=== PATIENT | male | born 1965 | race Caucasian/White ===

== ENCOUNTER 2018-10-29 11:42 | Inpatient (IN) ==
[2018-10-29] MEDS ORDERED: Ketorolac 30 MG/ML VIAL IVP ONE (12:12)
[2018-10-29] MEDS ORDERED: 0.9 % Sodium Chloride 1,000 ML IVC ONE (12:12)
[2018-10-29] MEDS ORDERED: *HR* FentaNYL (PF) 100 MCG/2 ML VIAL IVP ONE (12:12)
[2018-10-29 12:24] LABS: Bilirubin,Urine Negative (Negative); Blood,Urine Negative (Negative); Clarity,Urine Clear (Clear); Color,Urine Yellow (Yellow); Glucose,Urine (UA) Normal (Normal); Ketones,Urine Negative (Negative); Leukocyte Esterase,Urine Negative (Negative); Nitrite,Urine Negative (Negative); PH,Urine 6.5 pH Units (5.0-8.0); Protein,Urine Negative (Neg-Trace); Specific Gravity,Urine 1.014 (1.010-1.025); Urobilinogen,Urine Normal (Normal)
[2018-10-29 12:37] LABS: Basophils # 0.1 K/mcL (0.0-0.2); Basophils % 0.4 %; Eosinophils # 0.2 K/mcL (0.0-0.6); Eosinophils % 1.2 %; Hematocrit 44.6 % (37.5-50.1); Hemoglobin 15.4 g/dL (12.9-16.9); Immature Granulocytes % 0.5 % (0-4); Lymphocytes # 1.7 K/mcL (0.6-4.6); Lymphocytes % 11.7 %; Mean Corpuscular HGB Conc 34.5 g/dL (31.6-35.5); Mean Corpuscular Hemoglobin 34.6 pg (28.0-33.3); Mean Corpuscular Volume 100.2 fL (83.0-100.0); Monocytes % 6.9 %; Neutrophils # 11.5 K/mcL (1.6-8.9); Platelet Count 130 K/mcL (140-400); Red Blood Count 4.45 M/mcL (4.19-5.50); Red Cell Distribution Width 12.9 % (11.5-14.5); Segmented Neutrophils % 79.3 %; White Blood Count 14.5 K/mcL (4.3-11.1)
--- NOTE | 2018-10-29 12:53 | Emergency Department Note ---
Disposition Clinical Impression: Common bile duct dilatation Pancreatitis Qualifiers: Chronicity: acute Pancreatitis type: unspecified pancreatitis type Acute pancreatitis complication: unspecified Qualified Code(s): K85.90 - Acute pancreatitis without necrosis or infection, unspecified Disposition: Admitted As Inpatient Condition: Good Referrals: Eugenio Ruiz MD [Primary Care Provider] - Forms: ED Satisfaction Letter, Work/School Release Time of Disposition: 14:27 General Adult HPI - General Chief complaint: ED Abdominal Pain Stated complaint: Kidney Stone Time Seen by Provider: 10/29/18 12:10 Source: patient Mode of arrival: ambulatory Limitations: no limitations Nursing Notes Reviewed: Yes Vital Signs Reviewed: Yes - History of Present Illness HPI Narrative: 53 year old male present to the ED with complaintsof left flank pain and passing kidney stone just this morning .STate that he felt the pain last night and it kept him up. Atinet states that his last kidny stone was over 20 yaers ago and it required a basket retrieval for removal but has not had one since. He state that the sensation is sharp and wraps around in his groin and it feels like ther are many omore that are trying to drop. PAtinet denies fevers, heamturia, or nausea or vomitting. Patinet states that it feels as though there is knidfe scraping down his back to his groin. Pain Scale: 9 - Related Data Home Medications Medication Instructions Recorded Confirmed Albuterol Sulfate [Proair Hfa] 2 puff IH Q4H PRN 05/04/15 11/12/17 Allopurinol [Zyloprim 100 MG] 100 mg PO BID 05/04/15 11/12/17 Carbidopa/Levodopa 25/100 [Sinemet 1 tab PO QID 05/04/15 11/12/17 25/100] Escitalopram [Lexapro] 20 mg PO DAILY 05/04/15 10/29/18 Melatonin 10 mg PO HS 05/04/15 10/29/18 Metoprolol XL (24 HR) Succ [Toprol 50 mg PO DAILY 05/04/15 10/29/18 Xl] Hydrocortisone [Proctozone-Hc] 1 appl RC BID 11/05/15 11/12/17 Diphenoxylate/Atropine [Lomotil 1 each PO QID PRN 08/28/16 11/12/17 2.5 mg/0.025 mg] Mirtazapine [Remeron] 15 mg PO HS 11/12/17 10/29/18 Pantoprazole Sodium [Protonix] 40 mg PO DAILY 11/12/17 10/29/18 Previous Rx's Medication Instructions Recorded Fenofibrate [Tricor] 54 mg PO DAILY #30 tablet 05/07/15 Albuterol Neb [Proventil Neb] 2.5 mg IH ONCE PRN inhsol 11/12/17 Allergies Allergy/AdvReac Type Severity Reaction Status Date / Time acetaminophen [From Tylenol] Allergy Nausea Verified 11/12/17 09:50 haloperidol [From Haldol] AdvReac See Verified 10/30/17 09:57 Comments Constitutional: Denies: fever, chills, weakness, weight change Eyes: Denies: eye pain, eye discharge, vision change ENT ED: Denies: ear pain, throat pain, dental pain, hearing loss, epistaxis, congestion, dysphagia Cardiovascular: Denies: chest pain, palpitations, dyspnea on exertion, edema, syncope Respiratory: Denies: cough, dyspnea, wheezes, hemoptysis, stridor Gastrointestinal: Reports: abdominal pain. Denies: nausea, vomiting, diarrhea, constipation, hematemesis, melena, hematochezia Genitourinary: Reports: dysuria, frequency. Denies: urgency, hematuria Musculoskeletal: Denies: back pain, neck pain, arthralgia, myalgia Integumentary: Denies: rash, abrasion, lesions Neurological: Denies: headache, weakness, numbness, paresthesias, confusion, abnormal gait, vertigo Psychiatric: Denies: anxiety, depression, suicidal thoughts, homicidal thoughts, auditory hallucinations, visual hallucinations Endocrine: Denies: fatigue Hematological/Lymphatic: Denies: easy bleeding, easy bruising Allergic/Immunologic: Denies: facial swelling, urticaria Past Medical History - Past Medical History Medical history: Reports: GERD, hyperlipidemia, kidney stones, other Surgical history: Reports: cholecystectomy Psychiatric history: Reports: anxiety, depression, PTSD - Social History Smoking Status: Current every day smoker Smokeless Tobacco Status: No Alcohol use: Reports: none Drug use: Reports: none Physical Exam - General Limitations: no limitations General appearance: alert, in no apparent distress - Head Head exam: atraumatic, normocephalic, normal inspection - Eye Eye exam: Present: normal appearance, PERRL, EOMI - Expanded Eye Exam Pupils: Bilateral: reactive - ENT ENT exam: normal exam, normal oropharynx, mucous membranes moist - Expanded ENT Exam External ear exam: Present: normal external inspection Mouth exam: Present: normal external inspection Teeth exam: Present: normal inspection Throat exam: Present: normal inspection - Neck Neck exam: Present: normal inspection, full ROM, trachea midline - Chest Chest inspection: Present: normal inspection, symmetric chest wall rise - Respiratory Respiratory exam: Present: normal lung sounds bilaterally - Cardiovascular Cardiovascular exam: Present: regular rate, normal rhythm, normal heart sounds - Abdominal Exam Abdominal exam: Present: soft, Non-Tender. Absent: tenderness, distention, guarding, rebound, rigidity - Extremities Exam Extremities exam: Present: normal inspection, full ROM. Absent: tenderness, pedal edema - Expanded Upper Extremity Exam Shoulder exam: Present: normal inspection, full ROM Arm exam: Present: normal inspection, full ROM Elbow exam: Present: normal inspection, full ROM Forearm/Wrist exam: Present: normal inspection, full ROM Hand exam: Present: normal inspection, full ROM Vascular exam: Normal: capillary refill, radial pulse - Expanded Lower Extremity Exam Hip/Pelvis exam: Present: normal inspection, full ROM Upper leg exam: Present: normal inspection, full ROM Knee exam: Present: normal inspection, full ROM Lower leg exam: Present: normal inspection, full ROM Ankle exam: Present: normal inspection, full ROM Foot/toe exam: Present: normal inspection, full ROM Neurovascular/Tendon exam: Absent: motor deficit, sensory deficit, tendon deficit - Back Exam Back exam: Present: normal inspection, full ROM, tenderness (left sided, mid back) - Neurological Exam Neurological exam: Present: alert, oriented X3 - Expanded Neurological Exam Patient oriented to: Present: person, place, time Coma Scale Eye Opening: Spontaneous Coma Scale Motor Response: Obeys Commands Coma Scale Verbal Response: Oriented Coma Scale Total: 15 - Psychiatric Psychiatric exam: Present: normal affect, normal mood - Skin Skin exam: Present: warm, dry, intact, normal color Course Course Narrative: i will do a kidney stone protocol with CT abp and IVF/meds for relief with labs. UA is negative - Reevaluation(s) Reevaluation #1: updated patiet on results. Patinet agrees to admission. NPO now. Time: 14:26 - Consultations Consultation #1: discussed case with Ledy diaz from GI and they will see in consult. Recomemndating a MRCP Time: 14:18 Consultation #2: discussed case with Dr. Matthew and he accepts aptinet to medicine service. Time: 14:26 Vital Signs Temperature 97.9 F 10/29/18 11:43 Pulse Rate 84 10/29/18 11:43 Respiratory Rate 16 10/29/18 11:43 Blood Pressure 120/85 10/29/18 11:43 O2 Sat by Pulse Oximetry 97 10/29/18 11:43 Temperature 97.9 F 10/29/18 11:43 Pulse Rate 84 10/29/18 11:43 Respiratory Rate 16 10/29/18 11:43 Blood Pressure 120/85 10/29/18 11:43 O2 Sat by Pulse Oximetry 97 10/29/18 11:43 Oxygen Delivery Oxygen Delivery Room Air Medical Decision Making - Lab Data Result diagrams: 10/29/18 12:23 10/29/18 12:23 Lab Results 10/29/18 10/29/18 10/29/18 Range/Units 11:59 12:23 12:23 WBC 14.5 H (4.3-11.1) K/mcL RBC 4.45 (4.19-5.50) M/mcL Hgb 15.4 (12.9-16.9) g/dL Hct 44.6 (37.5-50.1) % MCV 100.2 H (83.0-100.0) fL MCH 34.6 H (28.0-33.3) pg MCHC 34.5 (31.6-35.5) g/dL RDW 12.9 (11.5-14.5) % Plt Count 130 L (140-400) K/mcL MPV 10.0 (9.4-12.4) fL Immature Gran % 0.5 (0-4) % Seg Neutrophils % 79.3 % Lymphocytes % 11.7 % Monocytes % 6.9 % Eosinophils % 1.2 % Basophils % 0.4 % Neutrophils # 11.5 H (1.6-8.9) K/mcL Lymphocytes # 1.7 (0.6-4.6) K/mcL Monocytes # 1.0 (0.0-1.3) K/mcL Eosinophils # 0.2 (0.0-0.6) K/mcL Basophils # 0.1 (0.0-0.2) K/mcL Sodium 136 (136-145) mEq/L Potassium 3.8 (3.5-5.1) mEq/L Chloride 103 (98-107) mEq/L Carbon Dioxide 25 (23-29) mEq/L BUN 11 (6-20) mg/dL Creatinine 0.77 (0.70-1.30) mg/dL Est GFR ( Amer) > 60 (> 60) Est GFR (Non-Af Amer) > 60 (> 60) BUN/Creatinine Ratio 14 (6-26) Glucose 136 H (70-105) mg/dL Calculated Osmolality 283 (280-300) Calcium 7.9 L (8.6-10.3) mg/dL Total Bilirubin 0.6 (0.3-1.0) mg/dL Direct Bilirubin 0.1 (0.0-0.2) mg/dL Indirect Bilirubin 0.5 (0.0-1.2) mg/dL AST 149 H (13-39) Units/L ALT 145 H (7-52) Units/L Alkaline Phosphatase 113 H (34-104) Units/L Serum Total Protein 6.2 L (6.4-8.9) g/dL Albumin 3.8 (3.5-5.7) g/dL Globulin 2.4 (2.4-3.5) g/dL Albumin/Globulin Ratio 1.6 (1.1-2.2) Lipase 249 H (11-82) Units/L Urine Color Yellow (Yellow) Urine Clarity Clear (Clear) Urine pH 6.5 (5.0-8.0) pH Units Ur Specific [place] 1.014 (1.010-1.025) Urine Protein Negative (Neg-Trace) mg/dL Urine Glucose (UA) Normal (Normal) mg/dL Urine Ketones Negative (Negative) mg/dL Urine Blood Negative (Negative) Urine Nitrite Negative (Negative) Urine Bilirubin Negative (Negative) Urine Urobilinogen Normal (Normal) mg/dL Ur Leukocyte Esterase Negative (Negative) Ur Culture Indicated? NO (NO)
[2018-10-29 12:59] LABS: Alanine Aminotransferase 145 Units/L (7-52); Albumin 3.8 g/dL (3.5-5.7); Albumin/Globulin Ratio 1.6 (1.1-2.2); Alkaline Phosphatase 113 Units/L (34-104); Aspartate Amino Transferase 149 Units/L (13-39); BUN/Creatinine Ratio 14 (6-26); Bilirubin,Direct 0.1 mg/dL (0.0-0.2); Bilirubin,Indirect 0.5 mg/dL (0.0-1.2); Bilirubin,Total 0.6 mg/dL (0.3-1.0); Blood Urea Nitrogen 11 mg/dL (6-20); Calcium 7.9 mg/dL (8.6-10.3); Carbon Dioxide 25 mEq/L (23-29); Chloride 103 mEq/L (98-107); Globulin 2.4 g/dL (2.4-3.5); Glucose 136 mg/dL (70-105); Lipase 249 Units/L (11-82); Osmolality,Calculated 283 (280-300); Potassium 3.8 mEq/L (3.5-5.1); Sodium 136 mEq/L (136-145); Total Protein 6.2 g/dL (6.4-8.9); eGFR For African Americans > 60 (> 60); eGFR For Non-African Americans > 60 (> 60)
[2018-10-29] MEDS ORDERED: Morphine Sulfate 2 MG/ML SYRINGE IVP ONE (14:03)
[2018-10-29] MEDS ORDERED: Ondansetron 4 MG/2 ML VIAL IVP ONE (14:03)
[2018-10-29] MEDS ORDERED: Ondansetron 4 MG/2 ML VIAL IVP PRN (15:17)
[2018-10-29] MEDS ORDERED: *HR* HYDROcodone/Acet 5/325 mg TABLET PO PRN (15:22)
[2018-10-29] MEDS ORDERED: Acetaminophen 325 MG TABLET PO PRN (15:22)
--- NOTE | 2018-10-29 15:28 | Internal Med History&Physical ---
Date of Encounter: 10/29/18 Time of Encounter: 15:00 Internal Medicine - H&P: HPI Chief complaint: abdominal pain Admitted From: Home Plans for Post Hospital Care: Home History of present illness: Mr. Stern is a 53 year old male with history of etoh abuse, acute pancreatitis, Parkinson disease, nephrolithiasis who came into the hospital due to back pain. His pain started yesterday and gradually got worse, intermittent, 6/10, nonradiating. He denied nausea/vomiting/jaundice or itching. He passed a kidney stone today and he denied any dysuria, hematuria, or polyuria. He has no fever, chills or night sweats. He drinks vodka 34 times week with no previous history of withdrawal, seizures or hallucinations. He thinks that his pain is different than his pancreatitis pain in the past. In the ED, patient was afebrile, hemodynamically stable. Blood work was significant for leukocytosis 14.5, elevated AST/AST/ALK and lipase level. UA was essentially negative. CT scan of the abdomen revealed fatty liver disease, acute interstitial edematous pancreatitis, mildly dilated common bile duct near compared to last CT scan which could represent choledocholithiasis. Patient received pain management and IV fluid in the ED. Past Med Surg Social Fam HX - Past Medical History Medical history: GERD, hyperlipidemia, kidney stones, other Additional medical history: parkinsons, insomnia, external hemorrhoids, tachycardia, stomach ulcer, pancreatitis, agressiveniess and agitation with anesthesia Psychiatric history: anxiety, depression, PTSD - Past Surgical History Surgical History: cholecystectomy Additional surgical history: multiple back and orthodic surgeries - Social History Smoking Status: Current every day smoker Smokeless Tobacco Status: No Alcohol use: none Drug use: none Current living situation: Home - Independent Activity Level: Independent ambulation Recent Out of Country Travel Within the Last 8 Weeks: No Exposure or Possible Exposure to Illness During Travel: No - Additional Family History Additional family history: Patient does not recall any family history Internal Medicine - H&P: Meds Albuterol Sulfate [Proair Hfa] 2 puff IH Q4H PRN 05/04/15 [History] Escitalopram [Lexapro] 20 mg PO DAILY 05/04/15 [History] Melatonin 10 mg PO HS 05/04/15 [History] Metoprolol XL (24 HR) Succ [Toprol Xl] 50 mg PO DAILY 05/04/15 [History] Fenofibrate [Tricor] 54 mg PO DAILY #30 tablet 05/07/15 [Rx] Mirtazapine [Remeron] 15 mg PO HS 11/12/17 [History] Pantoprazole Sodium [Protonix] 40 mg PO DAILY PRN 11/12/17 [History] Rotigotine [Neupro] 1 each TD DAILY 10/29/18 [History] Tramadol HCl [Ultram] 50 mg PO Q8H PRN 10/29/18 [History] Allergy/AdvReac Type Severity Reaction Status Date / Time acetaminophen [From Tylenol] Allergy Nausea Verified 11/12/17 09:50 haloperidol [From Haldol] AdvReac See Verified 10/30/17 09:57 Comments All Systems PM: A 10-system review of systems was performed and is negative for pertinent findings except as documented above in the HPI. - Constitutional Vitals: Temp Pulse Resp BP Pulse Ox 97.9 F 84 16 120/85 97 10/29/18 11:43 10/29/18 11:43 10/29/18 11:43 10/29/18 11:43 10/29/18 11:43 Exam: General: Patient is alert, oriented 3. Head: Atraumatic, normal inspection, normocephalic. Eye: EOMI, PERRLA, no scleral icterus noted. ENT: Mucous membranes moist. Neck: Normal inspection, Respiratory: No respiratory distress, rhonchi, or wheezes noted. Cardiovascular: Regular rate and regular rhythm, S1 and S2 audible. No murmurs, rubs, or gallops. GI: Soft, nondistended, normal bowel sounds. Extremities:No joint swelling, pedal edema, or tenderness noted. Neurological: Alert, oriented 3, no focal deficits. Psychiatric: normal affect, normal mood. Skin: Dry, intact, warm. Normal color. No rashes. Internal Med - H&P Results - Labs CBC & Chem 7: 10/29/18 12:23 10/29/18 12:23 Labs: Short CBC 10/29/18 Range/Units 12:23 WBC 14.5 H (4.3-11.1) K/mcL Hgb 15.4 (12.9-16.9) g/dL Hct 44.6 (37.5-50.1) % Plt Count 130 L (140-400) K/mcL Neutrophils # 11.5 H (1.6-8.9) K/mcL BMP 10/29/18 12:23 Sodium 136 Potassium 3.8 Chloride 103 Carbon Dioxide 25 BUN 11 Creatinine 0.77 Glucose 136 H Calcium 7.9 L Liver Function 10/29/18 Range/Units 12:23 Total Bilirubin 0.6 (0.3-1.0) mg/dL Direct Bilirubin 0.1 (0.0-0.2) mg/dL AST 149 H (13-39) Units/L ALT 145 H (7-52) Units/L Alkaline Phosphatase 113 H (34-104) Units/L Albumin 3.8 (3.5-5.7) g/dL Urine 10/29/18 Range/Units 11:59 Urine Color Yellow (Yellow) Urine Clarity Clear (Clear) Urine pH 6.5 (5.0-8.0) pH Units Ur Specific [place] 1.014 (1.010-1.025) Urine Protein Negative (Neg-Trace) mg/dL Urine Glucose (UA) Normal (Normal) mg/dL - Impressions ITS Impressions Abdomen/Pelvis CT 10/29/18 13:43 IMPRESSION: 1. Acute interstitial edematous pancreatitis. 2. Hepatic steatosis. There is a slightly lobular contour of the liver raising the suspicion for cirrhosis. 3. Mildly dilated common bile duct, new from the prior exam. Recommend correlation with LFTs as findings could be related to postcholecystectomy changes. However in the setting of acute pancreatitis, an underlying choledocholithiasis cannot be excluded. 4. Single focally dilated loop of small bowel in the left upper quadrant likely related to focal ileus. D/ / 10/29/2018 14:51:32 Nano Martin MD / [facility] Interpreting Provider: Nano Martin MD - Assessment and Plan (1) Pancreatitis Current Visit: Yes Status: Acute Qualifiers: Chronicity: acute Pancreatitis type: alcohol induced Acute pancreatitis complication: unspecified Qualified Code(s): K85.20 - Alcohol induced acute pancreatitis without necrosis or infection (2) Tobacco abuse Current Visit: Yes Status: Chronic (3) ETOH abuse Current Visit: Yes Status: Chronic (4) Common bile duct dilatation Current Visit: Yes Status: Acute (5) DVT prophylaxis Current Visit: Yes Status: Acute (6) Parkinson disease Current Visit: Yes Status: Chronic - Summary of Assessment and Plan Summary of Assessment and Plan: 53-year-old male with history of high triglycerides, etoh abuse, tobacco abuse, pancreatitis and nephrolithiasis who came into the hospital with abdominal and back pain after passing a kidney stone. Acute pancreatitis: Lipase is elevated, CT scan of the abdomen showing acute edematous pancreatitis. Likely EtOH related. Check triglyceride level. Will manage with IV fluids, pain management and clear liquid diets. common bile duct dilation: LIKELY physiologic post cholecystectomy however could be due to choledocholithiasis. GI is consulted, MRCP ordered. LFT elevation. Transaminites: more hepato cellular pattern, suspected due to combined etoh abuse and fatty liver disease. check LFT tomorrow. doesn't meet criteria for acute cholingitis. leukocytosis: likely from tobacco abuse, no sign of infection. check CBC tomorrow. no indication for Abx. etoh abuse: last drink was yesterday, no signs of withdrawl, manage off CIWA as I am expecting short course in the hospital. consulted to quit drinking and offered him acomprosate. tobacco abuse: consulted to quit smoking. High TG: continue finofibrate. Anxiety: Continue home medication DVT prophylaxis: Subacute heparin - Time Spent With Patient Total time spent is greater than 50% in coordination of care (as documented) at patient's floor/unit and/or counseling patient:
[2018-10-29 15:48] LABS: Triglycerides 1215 mg/dL (< 150)
[2018-10-29] MEDS: Ringers Solution, Lactated 1,000 ML IVC SCH ×2 (16:04→21:57)
[2018-10-29] MEDS: Ketorolac 30 MG/ML VIAL IVP PRN (16:57)
[2018-10-29] MEDS: *HR* Heparin 5,000 UNIT/ML VIAL SQ SCH (17:25)
[2018-10-29] MEDS: *HR* OxyCODONE Immed Rel 5 MG TABLET PO PRN (20:13)
[2018-10-29] MEDS: Mirtazapine 15 MG TABLET PO SCH (21:56)
[2018-10-29] MEDS: Melatonin 3 MG TABLET PO SCH (21:56)
[2018-10-30] MEDS: Ketorolac 30 MG/ML VIAL IVP PRN (01:15)
[2018-10-30] MEDS: *HR* OxyCODONE Immed Rel 5 MG TABLET PO PRN (02:23)
[2018-10-30] MEDS: Ringers Solution, Lactated 1,000 ML IVC SCH (03:15)
[2018-10-30 06:38] LABS: Basophils % 0.2 %; Eosinophils % 0.2 %; Immature Granulocytes % 0.5 % (0-4); Lymphocytes % 5.5 %
[2018-10-30 06:41] LABS: Hematocrit 42.4 % (37.5-50.1); Hemoglobin 14.4 g/dL (12.9-16.9); Immature Platelets 5.9 % (1.1-6.1); Lymphocytes # 0.8 K/mcL (0.6-4.6); Mean Corpuscular Volume 100.2 fL (83.0-100.0); Mean Platelet Volume 10.7 fL (9.4-12.4); Monocytes # 0.7 K/mcL (0.0-1.3); Red Blood Count 4.23 M/mcL (4.19-5.50); Red Cell Distribution Width 13.1 % (11.5-14.5); Segmented Neutrophils % 88.6 %; White Blood Count 14.7 K/mcL (4.3-11.1)
[2018-10-30 06:43] LABS: Platelet Count 83 K/mcL (140-400)
[2018-10-30] MEDS: *HR* Heparin 5,000 UNIT/ML VIAL SQ SCH ×2 (06:48→17:32)
[2018-10-30 06:58] LABS: BUN/Creatinine Ratio 16 (6-26); Blood Urea Nitrogen 12 mg/dL (6-20); Calcium 7.9 mg/dL (8.6-10.3); Carbon Dioxide 26 mEq/L (23-29); Chloride 104 mEq/L (98-107); Glucose 103 mg/dL (70-105); Osmolality,Calculated 282 (280-300); Potassium 3.8 mEq/L (3.5-5.1); Sodium 136 mEq/L (136-145); eGFR For African Americans > 60 (> 60); eGFR For Non-African Americans > 60 (> 60)
[2018-10-30 06:59] LABS: Albumin 3.2 g/dL (3.5-5.7); Albumin/Globulin Ratio 1.6 (1.1-2.2); Bilirubin,Direct 0.2 mg/dL (0.0-0.2); Bilirubin,Indirect 0.5 mg/dL (0.0-1.2); Bilirubin,Total 0.7 mg/dL (0.3-1.0); Total Protein 5.2 g/dL (6.4-8.9)
[2018-10-30] MEDS ORDERED: Ringers Solution, Lactated 1,000 ML IVC SCH ×2 (07:30→11:16)
[2018-10-30] MEDS ORDERED: *HR* OxyCODONE Immed Rel 5 MG TABLET PO PRN (08:30)
[2018-10-30] MEDS ORDERED: *HR* OxyCODONE Immed Rel 5 MG TABLET PO SCH (08:30)
--- NOTE | 2018-10-30 08:39 | Gastroenterology Consult Note ---
<Ying Lindsay - Last Filed: 10/30/18 10:43> Date of Encounter: 10/30/18 Time of Encounter: 10:43 - Assessment and plan (1) Pancreatitis Current Visit: Yes Status: Acute Assessment and plan: Presented with acute onset abdominal pain with back pain Reported pain onset after drinking a significant amount of vodka Had a CT of the abdomen and pelvis which showed acute interstitial edematous pancreatitis MRI of the abdomen showed acute uncomplicated pancreatitis with biliary duct dilation Previous history of pancreatitis reports 2 years ago had gallstone pancreatitis status post cholecystomy Currently complaining of ongoing dull pain with nausea and decreased appetite Would recommend IV hydration Continue pain management Spirometry ordered B12 and thiamine ordered given daily history of alcohol use Would recommend advancing diet as tolerated, if cannot tolerate oral intake can consider J-tube (dobhoff) Qualifiers: Chronicity: acute Pancreatitis type: alcohol induced Acute pancreatitis complication: unspecified Qualified Code(s): K85.20 - Alcohol induced acute pancreatitis without necrosis or infection - Time Spent With Patient Total time spent is greater than 50% in coordination of care (as documented) at patient's floor/unit and/or counseling patient: GI History of Present Illness - Data of Consult Requesting Physician: Roxy Matthews - Consult Narrative History of present illness: Mr. Stern is a 53 year old male with past medical history of GERD, alcohol abuse, pancreatitis, Parkinson's disease, nephrolithiasis. His pain started on 10/28/18. Reports the pain is located in the left side of the back as well as pelvic region and diffuse abdominal pain. Pain is rated as 9 on a 10 and it is constant. States that this pain is very different from his previous pancreatic Rex pain. States that the pain onset after he had half a bottle of vodka. Reports drinking excessively 3-4 times a week with no previous episodes of alcohol which will symptoms. Does report that the pain associated that he is having difficulty taking a big breath in. She does report that his previous pancreatitis was likely secondary to gallstone is seen underwent cholecystectomy thereafter. He is also complaining of nausea denying any emesis. He reported recently passing a kidney stone and reports the pelvic pain is In the ED he was noted to have WBC of 14.5. CT of the abdomen showed fatty liver disease with acute interstitial edematous pancreatitis with mildly dilated common bile duct. He is denying fever, chills, chest pain, shortness of breath, headache, blurry vision, or changes in his bowel movements. Past Med Surg Social Fam HX - Past Medical History Medical history: GERD, hyperlipidemia, kidney stones, other Additional medical history: parkinsons, insomnia, external hemorrhoids, tachycardia, stomach ulcer, pancreatitis, agressiveniess and agitation with anesthesia Psychiatric history: anxiety, depression, PTSD - Past Surgical History Surgical History: cholecystectomy Additional surgical history: multiple back and orthodic surgeries - Social History Smoking Status: Current every day smoker Packs per day: 1 Smokeless Tobacco Status: No Alcohol use: none Drug use: none - Family History Mother Hx Family Cancer: Yes Hx Family Endocrine Disorder: Yes (mother has dm) - Gastrointestinal Gastrointestinal: Present: abdominal pain, nausea. Absent: diarrhea, vomiting - Constitutional Constitutional: no fatigue, no weight loss - EENT Nose, mouth and throat: Absent: dysphagia, sore throat - Cardiovascular Cardiovascular ROS: Absent: chest pain, palpitations - Respiratory Respiratory IM: Absent: cough, dyspnea, hemoptysis - Genitourinary Genitourinary: Present: other (difficulty urinating and pain with urination ) - Neurological ROS Neurological GI: Absent: confusion, tremor(s), weakness - Hematologic/Lymphatic Hematologic/Lymphatic pediatric: Absent: easy bleeding - Musculoskeletal Musculoskeletal ROS GI: Present: back pain - Integumentary Integumentary GI: Absent: pruritis, rash - Constitutional Vitals: Temp Pulse Resp BP Pulse Ox 98.7 F 98 15 121/81 93 10/30/18 06:33 10/30/18 06:33 10/30/18 06:33 10/30/18 06:33 10/30/18 06:33 General appearance: Present: A&O X 3, pleasant, no acute distress - Head Head exam: Present: atraumatic - Eye Eye exam: Present: EOMI, sclera anicteric. Absent: conjunctival injection - ENT ENT exam: Present: mucous membranes moist, normal oropharynx - Neck Neck exam general surgery: Present: full ROM, trachea midline - Respiratory Respiratory exam: Present: CTAB. Absent: rhonchi, wheezes - Cardiovascular Cardiovascular exam: Present: RRR, +S1, +S2 - GI/Abdominal GI/Abdominal exam: Present: normal bowel sounds, soft, tenderness. Absent: firm - Neurological Exam Neurological exam: Present: alert, oriented X3, no focal deficits - Psychiatric Psychiatric exam: Present: normal affect, normal mood - Skin Skin exam: Present: dry, intact Results - Labs CBC & Chem 7: 10/30/18 05:29 10/30/18 05:29 Labs: Last Result 10/30/18 10/30/18 05:29 05:29 Calcium 7.9 L Triglycerides 740 H Entire Visit 10/30/18 10/30/18 05:29 05:29 Hgb 14.4 Hct 42.4 Total Bilirubin 0.7 AST 101 H ALT 105 H - Impressions Impressions Abdomen/Pelvis CT 10/29/18 13:43 IMPRESSION: 1. Acute interstitial edematous pancreatitis. 2. Hepatic steatosis. There is a slightly lobular contour of the liver raising the suspicion for cirrhosis. 3. Mildly dilated common bile duct, new from the prior exam. Recommend correlation with LFTs as findings could be related to postcholecystectomy changes. However in the setting of acute pancreatitis, an underlying choledocholithiasis cannot be excluded. 4. Single focally dilated loop of small bowel in the left upper quadrant likely related to focal ileus. D/ / 10/29/2018 14:51:32 Nano Martin MD / neftali Interpreting Provider: Nano Martin MD Abdomen MRI 10/29/18 19:24 IMPRESSION: 1. Redemonstration of known acute uncomplicated pancreatitis. 2. No choledocholithiasis. There is reservoir effect post cholecystectomy dilatation of the CBD and to a lesser extent intrahepatic biliary ducts. D/ / Pranav Reyes MD / Pranav Reyes MD Interpreting Provider: Pranav Reyes MD Consult Discharge Plan - Plan Referrals: Eugenio Ruiz MD [Primary Care Provider] - <Kishore Haskins - Last Filed: 10/30/18 17:31> Date of Encounter: 10/30/18 Time of Encounter: 14:00 - Time Spent With Patient Total time spent is greater than 50% in coordination of care (as documented) at patient's floor/unit and/or counseling patient: GI History of Present Illness - Data of Consult Requesting Physician: Roxy Matthews - Consult Narrative History of present illness: Mr. Stern is a 53 year old male - Constitutional Vitals: Temp Pulse Resp BP Pulse Ox 98.5 F 94 15 114/80 92 10/30/18 14:45 10/30/18 14:45 10/30/18 14:45 10/30/18 14:45 10/30/18 14:45 Results - Labs CBC & Chem 7: 10/30/18 05:29 10/30/18 05:29 Labs: Last Result 10/30/18 10/30/18 10/30/18 05:29 05:29 08:50 Calcium 7.9 L Triglycerides 740 H Vitamin B12 470 Folate 14.8 Entire Visit 10/30/18 10/30/18 10/30/18 05:29 05:29 08:50 Hgb 14.4 Hct 42.4 PT Total Bilirubin 0.7 AST 101 H ALT 105 H Folate 14.8 10/30/18 12:15 Hgb Hct PT 12.3 H Total Bilirubin AST ALT Folate - ABG ABG results: PT/INR, D-dimer PT 12.3 Seconds (9.4-12.1) H 10/30/18 12:15 - Impressions Impressions Abdomen/Pelvis CT 10/29/18 13:43 IMPRESSION: 1. Acute interstitial edematous pancreatitis. 2. Hepatic steatosis. There is a slightly lobular contour of the liver raising the suspicion for cirrhosis. 3. Mildly dilated common bile duct, new from the prior exam. Recommend correlation with LFTs as findings could be related to postcholecystectomy changes. However in the setting of acute pancreatitis, an underlying choledocholithiasis cannot be excluded. 4. Single focally dilated loop of small bowel in the left upper quadrant likely related to focal ileus. D/ / 10/29/2018 14:51:32 Nano Martin MD / neftali Interpreting Provider: Nano Martin MD Abdomen MRI 10/29/18 19:24 IMPRESSION: 1. Redemonstration of known acute uncomplicated pancreatitis. 2. No choledocholithiasis. There is reservoir effect post cholecystectomy dilatation of the CBD and to a lesser extent intrahepatic biliary ducts. D/ / Pranav Reyes MD / Pranav Reyes MD Interpreting Provider: Pranav Reyes MD Chest X-Ray 10/30/18 13:01 IMPRESSION: Low lung volumes with mild bibasilar opacities, which most likely represent atelectasis. D/ / Jacky Renteria MD / Jacky Renteria MD Interpreting Provider: Jacky Renteria MD - Attending Attestation I examined this patient and my medical decision-making was reviewed with the Resident Physician. I agree with the documented findings, disposition and treatment plan as described except to the extent set forth below. Patient seen complaining of abdominal pain. on examination: abdomen is soft but has diffuse tenderness. A: Patient with alcoholic liver disease with the pancreatitis. Dilated CBD and this patient who is status post cholecystectomy in the past elevated LFTs are due to his alcoholism. Recommendation: IV fluid pain control no need for any endoscopy or ERCP
[2018-10-30] MEDS ORDERED: ROTIGOTINE TD SCH (09:00)
[2018-10-30] MEDS ORDERED: Fenofibrate 54 MG TABLET PO SCH (09:00)
[2018-10-30] MEDS: Metoprolol XL (24 HR) Succ 50 MG TAB.ER.24H PO SCH (09:45)
[2018-10-30] MEDS: *HR* OxyCODONE Immed Rel 5 MG TABLET PO SCH ×4 (09:46→17:30)
[2018-10-30] MEDS: Fenofibrate 54 MG TABLET PO SCH (09:53)
[2018-10-30 10:02] LABS: Folate 14.8 ng/mL (3.0-16.0)
--- NOTE | 2018-10-30 12:01 | Internal Med Progress Note ---
Hospitalist Progress Note - Encounter Date of Encounter: 10/30/18 Time of Encounter: 10:30 - Subjective Interval History: Patient was seen this morning, is complaining about 10/10 abdominal pain and is worse from yesterday. He does not have appetite to eat, he denied fever, chills or night sweats. - Exam Vitals: Temp Pulse Resp BP Pulse Ox 98.7 F 98 15 121/81 93 10/30/18 06:33 10/30/18 06:33 10/30/18 06:33 10/30/18 06:33 10/30/18 06:33 Exam: General: Patient is alert, oriented 3. Moderate distress Head: Atraumatic, normal inspection, normocephalic. Eye: EOMI, PERRLA, no scleral icterus noted. ENT: Mucous membranes moist. Neck: Normal inspection, Respiratory: No respiratory distress, rhonchi, or wheezes noted. Cardiovascular: Regular rate and regular rhythm, S1 and S2 audible. No murmurs, rubs, or gallops. GI: Soft, epigastric tenderness with palpation. No rebound or rigidity Extremities:No joint swelling, pedal edema, or tenderness noted. Neurological: Alert, oriented 3, no focal deficits. Psychiatric: normal affect, normal mood. Skin: Dry, intact, warm. Normal color. No rashes. - Assessment and Plan (1) Pancreatitis Current Visit: Yes Status: Acute (2) Tobacco abuse Current Visit: Yes Status: Chronic (3) ETOH abuse Current Visit: Yes Status: Chronic (4) Common bile duct dilatation Current Visit: Yes Status: Suspected (5) DVT prophylaxis Current Visit: Yes Status: Acute (6) Parkinson disease Current Visit: Yes Status: Chronic - Summary of Assessment and Plan Summary of Assessment and Plan: 53-year-old male with history of high triglycerides, etoh abuse, tobacco abuse, pancreatitis and nephrolithiasis who came into the hospital with abdominal and back pain after passing a kidney stone. Acute pancreatitis: Bisap is 0. Lipase is elevated, CT scan of the abdomen showing acute edematous pancreatitis. Likely EtOH related, TG was 1200 yesterday, downtrending today. Will manage with IV fluids, pain management with scheduled pain medications and NPO. common bile duct dilation: MRCP is - for choledocholithiasis. GI is consulted, no plans for procedures Transaminites: more hepatocellular pattern, suspected due to combined etoh abuse and fatty liver disease.LFT downtrending, check tomorrow level. Check hepatitis panel. leukocytosis: likely from tobacco abuse, no sign of infection. check CBC tomorrow. no indication for Abx. etoh abuse: last drink was 2 days ago, no signs of withdrawl, started on CIWA. consulted to quit drinking and offered him acomprosate. tobacco abuse: consulted to quit smoking. High TG: Increase finofibrate dose, encouraged to quit drinking. Anxiety: Continue home medication DVT prophylaxis: Subacute heparin - Time Spent with Patient Total time spent is greater than 50% in coordination of care (as documented) at patient's floor/unit and/or counseling patient: Plan of Care Discussed with: patient Internal Medicine: Result - Labs CBC & Chem 7: 10/30/18 05:29 10/30/18 05:29 Labs: Short CBC 10/29/18 10/30/18 Range/Units 12:23 05:29 WBC 14.5 H 14.7 H (4.3-11.1) K/mcL Hgb 15.4 14.4 (12.9-16.9) g/dL Hct 44.6 42.4 (37.5-50.1) % Plt Count 130 L 83 L (140-400) K/mcL Neutrophils # 11.5 H 13.0 H (1.6-8.9) K/mcL BMP 10/29/18 10/30/18 12:23 05:29 Sodium 136 136 Potassium 3.8 3.8 Chloride 103 104 Carbon Dioxide 25 26 BUN 11 12 Creatinine 0.77 0.76 Glucose 136 H 103 Calcium 7.9 L 7.9 L Liver Function 10/29/18 10/30/18 Range/Units 12:23 05:29 Total Bilirubin 0.6 0.7 (0.3-1.0) mg/dL Direct Bilirubin 0.1 0.2 (0.0-0.2) mg/dL AST 149 H 101 H (13-39) Units/L ALT 145 H 105 H (7-52) Units/L Alkaline Phosphatase 113 H 131 H (34-104) Units/L Albumin 3.8 3.2 L (3.5-5.7) g/dL Urine 10/29/18 Range/Units 11:59 Urine Color Yellow (Yellow) Urine Clarity Clear (Clear) Urine pH 6.5 (5.0-8.0) pH Units Ur Specific [place] 1.014 (1.010-1.025) Urine Protein Negative (Neg-Trace) mg/dL Urine Glucose (UA) Normal (Normal) mg/dL - Impressions Impressions Abdomen/Pelvis CT 10/29/18 13:43 IMPRESSION: 1. Acute interstitial edematous pancreatitis. 2. Hepatic steatosis. There is a slightly lobular contour of the liver raising the suspicion for cirrhosis. 3. Mildly dilated common bile duct, new from the prior exam. Recommend correlation with LFTs as findings could be related to postcholecystectomy changes. However in the setting of acute pancreatitis, an underlying choledocholithiasis cannot be excluded. 4. Single focally dilated loop of small bowel in the left upper quadrant likely related to focal ileus. D/ / 10/29/2018 14:51:32 Nano Martin MD / neftali Interpreting Provider: Nano Martin MD Abdomen MRI 10/29/18 19:24 IMPRESSION: 1. Redemonstration of known acute uncomplicated pancreatitis. 2. No choledocholithiasis. There is reservoir effect post cholecystectomy dilatation of the CBD and to a lesser extent intrahepatic biliary ducts. D/ / Pranav Reyes MD / Pranav Reyes MD Interpreting Provider: Pranav Reyes MD Consult Discharge Plan - Plan Referrals: Eugenio Ruiz MD [Primary Care Provider] - (1) Pancreatitis Qualifiers: Chronicity: acute Pancreatitis type: alcohol induced Acute pancreatitis complication: unspecified Qualified Code(s): K85.20 - Alcohol induced acute pancreatitis without necrosis or infection
[2018-10-30] MEDS ORDERED: *HR* LORazepam 2 MG/ML VIAL IVP PRN ×3 (12:03)
[2018-10-30] MEDS: Cyanocobalamin (B-12) 1,000 MCG TABLET PO SCH (13:00)
[2018-10-30 13:04] LABS: INR 1.1; Prothrombin Time 12.3 Seconds (9.4-12.1)
[2018-10-30] MEDS: Thiamine (B-1) 100 MG TABLET PO SCH (13:04)
[2018-10-30] MEDS ORDERED: Piperacillin/Tazobactam 3.375 GM in 0.9 % Sodium Chloride Mini Bag 100 ML IVPB SCH (13:51)
[2018-10-30] MEDS: Piperacillin/Tazobactam 3.375 GM in 0.9 % Sodium Chloride Mini Bag 100 ML IVPB SCH (16:04)
[2018-10-30] MEDS ORDERED: *HR* Promethazine 25 MG/ML VIAL IVP PRN (16:44)
[2018-10-30] MEDS: 0.9 % Sodium Chloride 1,000 ML IVC SCH (17:30)
[2018-10-30 17:48] LABS: Adenovirus Not Detected (Not Detect); Bordetella Pertussis Not Detected (Not Detect); Chlamydophila pneumoniae Not Detected (Not Detect); Coronavirus 229E Not Detected (Not Detect); Coronavirus HKU1 Not Detected (Not Detect); Coronavirus NL63 Not Detected (Not Detect); Coronavirus OC43 Not Detected (Not Detect); Human Metapneumovirus Not Detected (Not Detect); Human Rhinovirus/Enterovirus Not Detected (Not Detect); Influenza A Subtype 2009 H1 Not Detected (Not Detect); Influenza A Untypeable Not Detected (Not Detect); Influenza B Not Detected (Not Detect); Mycoplasma pneumoniae Not Detected (Not Detect); Parainfluenza Virus 1 Not Detected (Not Detect); Parainfluenza Virus 2 Not Detected (Not Detect); Parainfluenza Virus 3 Not Detected (Not Detect); Parainfluenza Virus 4 Not Detected (Not Detect); Respiratory Syncytial Virus Not Detected (Not Detect)
[2018-10-30] MEDS: Mirtazapine 15 MG TABLET PO SCH (22:25)
[2018-10-30] MEDS: Melatonin 3 MG TABLET PO SCH (22:26)
[2018-10-30] MEDS: *HR* HYDROmorphone 2 MG/ML SYRINGE IVP PRN (22:44)
[2018-10-31] MEDS: Piperacillin/Tazobactam 3.375 GM in 0.9 % Sodium Chloride Mini Bag 100 ML IVPB SCH ×3 (00:45→16:10)
[2018-10-31] MEDS: *HR* OxyCODONE Immed Rel 5 MG TABLET PO SCH ×4 (00:45→18:13)
[2018-10-31] MEDS: 0.9 % Sodium Chloride 1,000 ML IVC SCH ×2 (00:46→07:44)
[2018-10-31] MEDS: *HR* Heparin 5,000 UNIT/ML VIAL SQ SCH ×2 (06:19→18:12)
[2018-10-31] MEDS: Vitamin B Complex/Vit C/Vit E 1 EACH TABLET PO SCH (07:45)
[2018-10-31] MEDS: Cyanocobalamin (B-12) 1,000 MCG TABLET PO SCH (07:45)
[2018-10-31] MEDS: Folic Acid 1 MG TABLET PO SCH (07:45)
[2018-10-31] MEDS: Fenofibrate 54 MG TABLET PO SCH (07:45)
[2018-10-31] MEDS: Ketorolac 30 MG/ML VIAL IVP PRN ×2 (07:46→14:55)
[2018-10-31] MEDS: Metoprolol XL (24 HR) Succ 50 MG TAB.ER.24H PO SCH (07:46)
[2018-10-31 07:58] LABS: Eosinophils # 0.1 K/mcL (0.0-0.6); Hematocrit 40.1 % (37.5-50.1); Hemoglobin 13.5 g/dL (12.9-16.9); Immature Platelets 5.9 % (1.1-6.1); Lymphocytes # 0.8 K/mcL (0.6-4.6); Mean Corpuscular HGB Conc 33.7 g/dL (31.6-35.5); Mean Platelet Volume 11.2 fL (9.4-12.4); Monocytes # 0.6 K/mcL (0.0-1.3); Red Blood Count 3.97 M/mcL (4.19-5.50); Red Cell Distribution Width 13.3 % (11.5-14.5); White Blood Count 11.5 K/mcL (4.3-11.1)
[2018-10-31 08:01] LABS: Alanine Aminotransferase 60 Units/L (7-52); Albumin 2.8 g/dL (3.5-5.7); Albumin/Globulin Ratio 1.2 (1.1-2.2); Alkaline Phosphatase 103 Units/L (34-104); Aspartate Amino Transferase 47 Units/L (13-39); BUN/Creatinine Ratio 20 (6-26); Bilirubin,Total 0.6 mg/dL (0.3-1.0); Blood Urea Nitrogen 18 mg/dL (6-20); Calcium 7.6 mg/dL (8.6-10.3); Carbon Dioxide 21 mEq/L (23-29); Chloride 108 mEq/L (98-107); Globulin 2.3 g/dL (2.4-3.5); Glucose 146 mg/dL (70-105); Osmolality,Calculated 289 (280-300); Potassium 3.7 mEq/L (3.5-5.1); Sodium 137 mEq/L (136-145); Total Protein 5.1 g/dL (6.4-8.9); eGFR For African Americans > 60 (> 60); eGFR For Non-African Americans > 60 (> 60)
[2018-10-31 08:08] LABS: Platelet Count 79 K/mcL (140-400)
[2018-10-31 09:38] LABS: Platelet Estimate Decreased (Normal); Toxic Granulation Present (Not Present)
[2018-10-31 09:53] LABS: Hepatitis B Surface Antigen Nonreactive (Nonreactive)
[2018-10-31 10:20] LABS: Hepatitis B Core IgM Nonreactive (Nonreactive); Hepatitis C Virus Antibody Nonreactive (Nonreactive)
[2018-10-31 10:21] LABS: Hepatitis A Antibody IgM Nonreactive (Nonreactive)
--- NOTE | 2018-10-31 11:15 | Internal Med Progress Note ---
Hospitalist Progress Note - Encounter Date of Encounter: 10/31/18 Time of Encounter: 10:00 - Subjective Interval History: Patient was seen this morning. He feels much better compared to yesterday. History complaining about abdominal pain that is improving with pain medication. He denied nausea/vomiting/fever/chills/night sweats. He states coughing with greenish sputum production. - Exam Vitals: Temp Pulse Resp BP Pulse Ox 98.9 F 102 17 111/70 90 10/31/18 06:36 10/31/18 06:36 10/31/18 06:36 10/31/18 06:36 10/31/18 06:36 Exam: General: Patient is alert, oriented 3. Moderate distress Head: Atraumatic, normal inspection, normocephalic. Eye: EOMI, PERRLA, no scleral icterus noted. ENT: Mucous membranes moist. Neck: Normal inspection, Respiratory: Bibasilar crackles Cardiovascular: Regular rate and regular rhythm, S1 and S2 audible. No murmurs, rubs, or gallops. GI: Soft, epigastric tenderness with palpation. No rebound or rigidity Extremities:No joint swelling, pedal edema, or tenderness noted. Neurological: Alert, oriented 3, no focal deficits. Psychiatric: normal affect, normal mood. Skin: Dry, intact, warm. Normal color. No rashes. - Assessment and Plan (1) Pancreatitis Current Visit: Yes Status: Acute (2) Tobacco abuse Current Visit: Yes Status: Chronic (3) ETOH abuse Current Visit: Yes Status: Chronic (4) Common bile duct dilatation Current Visit: Yes Status: Suspected (5) DVT prophylaxis Current Visit: Yes Status: Acute (6) Parkinson disease Current Visit: Yes Status: Chronic (7) Hypertriglyceridemia Current Visit: No Status: Acute (8) Pneumonia Current Visit: Yes Status: Acute (9) Sepsis Current Visit: Yes Status: Acute - Summary of Assessment and Plan Summary of Assessment and Plan: 53-year-old male with history of high triglycerides, etoh abuse, tobacco abuse, pancreatitis and nephrolithiasis who came into the hospital with abdominal and back pain after passing a kidney stone. Acute pancreatitis: Lipase waselevated, CT scan of the abdomen showing acute edematous pancreatitis. Likely EtOH related, TG was 1200 at admission, 465 today. Continue IVF, pain management with scheduled pain medications and CLEAR LIQUID DIET today. Sepsis: meets 3/4 criteria. 2/2 PNA. Official report did not reveal any pneumonia however reviewing CT images showed patchy infiltrate in the right lower lobe. Patient had leukocytosis with bandemia, productive cough. MRSA is negative. Respiratory viral panel, Legionella and Streptococcus antigens are negative. Continue Zosyn day 2 common bile duct dilation: MRCP is - for choledocholithiasis. GI is consulted, no plans for procedures Transaminites: downtrending. hepatocellular pattern, suspected due to combined etoh abuse and fatty liver disease. LFT downtrending, check tomorrow level. hepatitis panel is negative. etoh abuse: on CIWA, scored 4 this AM. consulted to quit drinking and offered him acomprosate. tobacco abuse: consulted to quit smoking. High TG: Trending down, Increase finofibrate dose, encouraged to quit drinking. Anxiety: Continue home medication DVT prophylaxis: Subacute heparin I reviewed independently all laboratory workup, pertinent images including x- rays and CT scans. I also reviewed independently and EKGs and my findings are in the body of my assessment and plan. I ordered the laboratory workup and images myself. I discussed finding with patient's, their families, RN's and consultants involved in the care of the patient. - Time Spent with Patient Total time spent is greater than 50% in coordination of care (as documented) at patient's floor/unit and/or counseling patient: Plan of Care Discussed with: patient Internal Medicine: Result - Labs CBC & Chem 7: 10/31/18 07:07 10/31/18 07:07 Labs: Short CBC 10/31/18 Range/Units 07:07 WBC 11.5 H (4.3-11.1) K/mcL Hgb 13.5 (12.9-16.9) g/dL Hct 40.1 (37.5-50.1) % Plt Count 79 L (140-400) K/mcL Neutrophils # 10.0 H (1.6-8.9) K/mcL BMP 10/31/18 07:07 Sodium 137 Potassium 3.7 Chloride 108 H Carbon Dioxide 21 L BUN 18 Creatinine 0.92 Glucose 146 H Calcium 7.6 L Liver Function 10/31/18 Range/Units 07:07 Total Bilirubin 0.6 (0.3-1.0) mg/dL AST 47 H (13-39) Units/L ALT 60 H (7-52) Units/L Alkaline Phosphatase 103 (34-104) Units/L Albumin 2.8 L (3.5-5.7) g/dL - ABG Interpretation ABG results: PT/INR, D-dimer PT 12.3 Seconds (9.4-12.1) H 10/30/18 12:15 - Impressions Impressions Abdomen/Pelvis CT 10/29/18 13:43 IMPRESSION: 1. Acute interstitial edematous pancreatitis. 2. Hepatic steatosis. There is a slightly lobular contour of the liver raising the suspicion for cirrhosis. 3. Mildly dilated common bile duct, new from the prior exam. Recommend correlation with LFTs as findings could be related to postcholecystectomy changes. However in the setting of acute pancreatitis, an underlying choledocholithiasis cannot be excluded. 4. Single focally dilated loop of small bowel in the left upper quadrant likely related to focal ileus. D/ / 10/29/2018 14:51:32 Nano Martin MD / neftali Interpreting Provider: Nano Martin MD Chest X-Ray 10/30/18 13:01 IMPRESSION: Low lung volumes with mild bibasilar opacities, which most likely represent atelectasis. D/ / Jacky Renteria MD / Jacky Renteria MD Interpreting Provider: Jacky Renteria MD Consult Discharge Plan - Plan Referrals: Eugenio Ruiz MD [Primary Care Provider] - (1) Pancreatitis Qualifiers: Chronicity: acute Pancreatitis type: alcohol induced Acute pancreatitis complication: unspecified Qualified Code(s): K85.20 - Alcohol induced acute pancreatitis without necrosis or infection (8) Pneumonia Qualifiers: Pneumonia type: due to unspecified organism Laterality: right Lung location: lower lobe of lung Qualified Code(s): J18.1 - Lobar pneumonia, unspecified organism (9) Sepsis Qualifiers: Sepsis type: sepsis due to unspecified organism Sepsis acute organ dysfunction status: without acute organ dysfunction Qualified Code(s): A41.9 - Sepsis, unspecified organism
[2018-10-31] MEDS: Melatonin 3 MG TABLET PO SCH (21:02)
[2018-10-31] MEDS: Mirtazapine 15 MG TABLET PO SCH (21:02)
[2018-10-31] MEDS: *HR* HYDROmorphone 2 MG/ML SYRINGE IVP PRN (21:03)
[2018-11-01] MEDS: Piperacillin/Tazobactam 3.375 GM in 0.9 % Sodium Chloride Mini Bag 100 ML IVPB SCH (00:30)
[2018-11-01] MEDS: *HR* OxyCODONE Immed Rel 5 MG TABLET PO SCH ×4 (00:30→17:39)
[2018-11-01 02:36] LABS: Basophils % 0.4 %; Eosinophils % 2.5 %; Mean Corpuscular Volume 101.8 fL (83.0-100.0)
[2018-11-01 02:38] LABS: Basophils # 0.1 K/mcL (0.0-0.2); Eosinophils # 0.3 K/mcL (0.0-0.6); Hematocrit 34.5 % (37.5-50.1); Hemoglobin 11.6 g/dL (12.9-16.9); Immature Granulocytes % 0.8 % (0-4); Immature Platelets 5.6 % (1.1-6.1); Lymphocytes # 0.8 K/mcL (0.6-4.6); Lymphocytes % 6.6 %; Mean Corpuscular HGB Conc 33.6 g/dL (31.6-35.5); Mean Corpuscular Hemoglobin 34.2 pg (28.0-33.3); Mean Platelet Volume 10.8 fL (9.4-12.4); Monocytes # 0.9 K/mcL (0.0-1.3); Monocytes % 7.6 %; Neutrophils # 9.4 K/mcL (1.6-8.9); Red Blood Count 3.39 M/mcL (4.19-5.50); Segmented Neutrophils % 82.1 %; White Blood Count 11.4 K/mcL (4.3-11.1)
[2018-11-01 02:41] LABS: Platelet Count 68 K/mcL (140-400)
[2018-11-01 02:57] LABS: BUN/Creatinine Ratio 21 (6-26); Blood Urea Nitrogen 15 mg/dL (6-20); Calcium 7.4 mg/dL (8.6-10.3); Carbon Dioxide 23 mEq/L (23-29); Chloride 108 mEq/L (98-107); Glucose 101 mg/dL (70-105); Osmolality,Calculated 283 (280-300); Potassium 3.6 mEq/L (3.5-5.1); Sodium 136 mEq/L (136-145); eGFR For African Americans > 60 (> 60); eGFR For Non-African Americans > 60 (> 60)
[2018-11-01 03:02] LABS: Platelet Estimate Decreased (Normal)
[2018-11-01] MEDS: *HR* Heparin 5,000 UNIT/ML VIAL SQ SCH ×2 (06:16→20:07)
[2018-11-01] MEDS: Cyanocobalamin (B-12) 1,000 MCG TABLET PO SCH (09:24)
[2018-11-01] MEDS: Folic Acid 1 MG TABLET PO SCH (09:24)
[2018-11-01] MEDS: Thiamine (B-1) 100 MG TABLET PO SCH (09:24)
[2018-11-01] MEDS: Metoprolol XL (24 HR) Succ 50 MG TAB.ER.24H PO SCH (09:24)
[2018-11-01] MEDS: Vitamin B Complex/Vit C/Vit E 1 EACH TABLET PO SCH (09:24)
[2018-11-01] MEDS: Fenofibrate 54 MG TABLET PO SCH (09:24)
[2018-11-01] MEDS: Ketorolac 30 MG/ML VIAL IVP PRN ×2 (09:28→16:15)
--- NOTE | 2018-11-01 13:21 | Internal Med Progress Note ---
Hospitalist Progress Note - Encounter Date of Encounter: 11/01/18 Time of Encounter: 09:25 - Subjective Interval History: No major events overnight. Patient was seen this a.m. He denied fever, chills or night sweats. He has no nausea, vomiting or abdominal pain. Patient denied chest pain, shortness of breath or palpitation. His pain is improving and feels slightly bloating - Exam Vitals: Temp Pulse Resp BP Pulse Ox 98.0 F 89 16 111/68 92 11/01/18 11:13 11/01/18 11:13 11/01/18 11:13 11/01/18 11:13 11/01/18 11:13 Exam: General: Patient is alert, oriented 3. Moderate distress Head: Atraumatic, normal inspection, normocephalic. Eye: EOMI, PERRLA, no scleral icterus noted. ENT: Mucous membranes moist. Neck: Normal inspection, Respiratory: Bibasilar crackles Cardiovascular: Regular rate and regular rhythm, S1 and S2 audible. No murmurs, rubs, or gallops. GI: Soft, epigastric tenderness with palpation. No rebound or rigidity Extremities:No joint swelling, pedal edema, or tenderness noted. Neurological: Alert, oriented 3, no focal deficits. Psychiatric: normal affect, normal mood. Skin: Dry, intact, warm. Normal color. No rashes. - Assessment and Plan (1) Pancreatitis Current Visit: Yes Status: Acute (2) Tobacco abuse Current Visit: Yes Status: Chronic (3) ETOH abuse Current Visit: Yes Status: Chronic (4) Common bile duct dilatation Current Visit: Yes Status: Suspected (5) DVT prophylaxis Current Visit: Yes Status: Acute (6) Parkinson disease Current Visit: Yes Status: Chronic (7) Hypertriglyceridemia Current Visit: No Status: Acute (8) Pneumonia Current Visit: Yes Status: Acute (9) Sepsis Current Visit: Yes Status: Acute - Summary of Assessment and Plan Summary of Assessment and Plan: 53-year-old male with history of high triglycerides, etoh abuse, tobacco abuse, pancreatitis and nephrolithiasis who came into the hospital with abdominal and back pain after passing a kidney stone. Acute pancreatitis: Lipase waselevated, CT scan of the abdomen showing acute edematous pancreatitis. Likely EtOH related, TG was 1200 at admission, 465 today. Advance diet to regular diet with good tolerance. Sepsis: meets 3/4 criteria. 2/2 PNA. Official report did not reveal any pneumonia however reviewing CT images showed patchy infiltrate in the right lower lobe. Patient had leukocytosis with bandemia, productive cough. MRSA is negative. Respiratory viral panel, Legionella and Streptococcus antigens are negative. Continue Zosyn day 3/5 common bile duct dilation: MRCP is - for choledocholithiasis. GI is consulted, no plans for procedures Transaminites: downtrending. hepatocellular pattern, suspected due to combined etoh abuse and fatty liver disease. LFT downtrending, check tomorrow level. hepatitis panel is negative. etoh abuse: on CIWA, scored 4 this AM. consulted to quit drinking and offered him acomprosate. tobacco abuse: consulted to quit smoking. High TG: Trending down, Increase finofibrate dose, encouraged to quit drinking. Anxiety: Continue home medication DVT prophylaxis: Subacute heparin Discharge tomorrow - Time Spent with Patient Total time spent is greater than 50% in coordination of care (as documented) at patient's floor/unit and/or counseling patient: Plan of Care Discussed with: patient Internal Medicine: Result - Labs CBC & Chem 7: 11/01/18 02:21 11/01/18 02:21 Labs: Short CBC 11/01/18 Range/Units 02:21 WBC 11.4 H (4.3-11.1) K/mcL Hgb 11.6 L D (12.9-16.9) g/dL Hct 34.5 L (37.5-50.1) % Plt Count 68 L (140-400) K/mcL Neutrophils # 9.4 H (1.6-8.9) K/mcL BMP 11/01/18 02:21 Sodium 136 Potassium 3.6 Chloride 108 H Carbon Dioxide 23 BUN 15 Creatinine 0.72 Glucose 101 Calcium 7.4 L - ABG Interpretation ABG results: PT/INR, D-dimer PT 12.3 Seconds (9.4-12.1) H 10/30/18 12:15 Consult Discharge Plan - Plan Referrals: Eugenio Ruiz MD [Primary Care Provider] - (1) Pancreatitis Qualifiers: Chronicity: acute Pancreatitis type: alcohol induced Acute pancreatitis complication: unspecified Qualified Code(s): K85.20 - Alcohol induced acute pancreatitis without necrosis or infection (8) Pneumonia Qualifiers: Pneumonia type: due to unspecified organism Laterality: right Lung location: lower lobe of lung Qualified Code(s): J18.1 - Lobar pneumonia, unspecified organism (9) Sepsis Qualifiers: Sepsis type: sepsis due to unspecified organism Sepsis acute organ dysfunction status: without acute organ dysfunction Qualified Code(s): A41.9 - Sepsis, unspecified organism
[2018-11-01] MEDS: 0.9 % Sodium Chloride 1,000 ML IVC SCH ×2 (20:20→20:39)
[2018-11-01] MEDS ORDERED: *HR* OxyCODONE Immed Rel 5 MG TABLET PO ONE (20:41)
[2018-11-02] MEDS: Mirtazapine 15 MG TABLET PO SCH ×2 (00:48→22:59)
[2018-11-02] MEDS: Melatonin 3 MG TABLET PO SCH ×2 (00:48→22:59)
[2018-11-02] MEDS: *HR* OxyCODONE Immed Rel 5 MG TABLET PO SCH ×4 (00:48→18:53)
[2018-11-02] MEDS: *HR* Heparin 5,000 UNIT/ML VIAL SQ SCH ×2 (06:02→18:53)
[2018-11-02] MEDS: Cyanocobalamin (B-12) 1,000 MCG TABLET PO SCH (07:32)
[2018-11-02] MEDS: Folic Acid 1 MG TABLET PO SCH (07:32)
[2018-11-02] MEDS: Metoprolol XL (24 HR) Succ 50 MG TAB.ER.24H PO SCH (07:32)
[2018-11-02] MEDS: Vitamin B Complex/Vit C/Vit E 1 EACH TABLET PO SCH (07:32)
[2018-11-02] MEDS: Thiamine (B-1) 100 MG TABLET PO SCH (07:32)
[2018-11-02] MEDS: Fenofibrate 54 MG TABLET PO SCH (07:32)
[2018-11-02] MEDS ORDERED: Isovue-370 500 ML BOTTLE IVP ONE (08:41)
[2018-11-02 09:24] LABS: Eosinophils % 1.1 %; Hemoglobin 11.9 g/dL (12.9-16.9); Immature Granulocytes % 1.1 % (0-4); Red Cell Distribution Width 12.7 % (11.5-14.5)
[2018-11-02 09:25] LABS: Basophils # 0.1 K/mcL (0.0-0.2); Basophils % 0.4 %; Eosinophils # 0.2 K/mcL (0.0-0.6); Hematocrit 35.8 % (37.5-50.1); Immature Platelets 5.1 % (1.1-6.1); Lymphocytes # 0.7 K/mcL (0.6-4.6); Lymphocytes % 5.2 %; Mean Corpuscular HGB Conc 33.2 g/dL (31.6-35.5); Mean Corpuscular Hemoglobin 33.9 pg (28.0-33.3); Mean Platelet Volume 10.7 fL (9.4-12.4); Monocytes # 1.6 K/mcL (0.0-1.3); Monocytes % 12.3 %; Neutrophils # 10.6 K/mcL (1.6-8.9); Red Blood Count 3.51 M/mcL (4.19-5.50); Segmented Neutrophils % 79.9 %; White Blood Count 13.3 K/mcL (4.3-11.1)
[2018-11-02 09:29] LABS: Platelet Count 86 K/mcL (140-400)
[2018-11-02 09:43] LABS: BUN/Creatinine Ratio 16 (6-26); Blood Urea Nitrogen 10 mg/dL (6-20); Calcium 8.2 mg/dL (8.6-10.3); Carbon Dioxide 25 mEq/L (23-29); Chloride 101 mEq/L (98-107); Glucose 116 mg/dL (70-105); Lipase 56 Units/L (11-82); Osmolality,Calculated 284 (280-300); Potassium 3.4 mEq/L (3.5-5.1); Sodium 137 mEq/L (136-145); Triglycerides 130 mg/dL (< 150); eGFR For African Americans > 60 (> 60); eGFR For Non-African Americans > 60 (> 60)
[2018-11-02] MEDS ORDERED: Potassium Chloride Elixir 20 MEQ/15 ML UDC PO ONE (10:18)
[2018-11-02 10:54] LABS: Bilirubin,Urine Negative (Negative); Blood,Urine Trace (Negative); Clarity,Urine Clear (Clear); Color,Urine Yellow (Yellow); Glucose,Urine (UA) Normal (Normal); Ketones,Urine 80 mg/dL (Negative); Leukocyte Esterase,Urine Negative (Negative); Nitrite,Urine Negative (Negative); Protein,Urine 30 mg/dL (Neg-Trace); Specific Gravity,Urine 1.019 (1.010-1.025); Urobilinogen,Urine Normal (Normal)
[2018-11-02 10:57] LABS: Bacteria,Urine None Seen per hpf (None-Few); Hyaline Casts,Urine None Seen per lpf (None-Few); RBC,Urine 0-3 per hpf (0-3); Squamous Epithelial Cell,Urine Moderate per lpf (None-Few); WBC,Urine 0-3 per hpf (0-3)
--- NOTE | 2018-11-02 12:59 | Internal Med Progress Note ---
Hospitalist Progress Note - Encounter Date of Encounter: 11/02/18 Time of Encounter: 09:50 - Subjective Interval History: Patient was seen this morning, he was complaining about bilateral flank burning with urination, diffuse abdominal pain. He denied nausea/vomiting or fever. - Exam Vitals: Temp Pulse Resp BP Pulse Ox 98.3 F 82 15 120/78 95 11/02/18 11:07 11/02/18 11:07 11/02/18 11:07 11/02/18 11:07 11/02/18 11:07 Exam: General: Patient is alert, oriented 3. Moderate distress Head: Atraumatic, normal inspection, normocephalic. Eye: EOMI, PERRLA, no scleral icterus noted. ENT: Mucous membranes moist. Neck: Normal inspection, Respiratory: Bibasilar crackles Cardiovascular: Regular rate and regular rhythm, S1 and S2 audible. No murmurs, rubs, or gallops. GI: Soft, epigastric tenderness with palpation. No rebound or rigidity Extremities:No joint swelling, pedal edema, or tenderness noted. Neurological: Alert, oriented 3, no focal deficits. Psychiatric: normal affect, normal mood. Skin: Dry, intact, warm. Normal color. No rashes. - Assessment and Plan (1) Pancreatitis Current Visit: Yes Status: Acute (2) Tobacco abuse Current Visit: Yes Status: Chronic (3) ETOH abuse Current Visit: Yes Status: Chronic (4) Common bile duct dilatation Current Visit: Yes Status: Suspected (5) DVT prophylaxis Current Visit: Yes Status: Acute (6) Parkinson disease Current Visit: Yes Status: Chronic (7) Hypertriglyceridemia Current Visit: No Status: Acute (8) Pneumonia Current Visit: Yes Status: Acute (9) Sepsis Current Visit: Yes Status: Acute (10) Liver cirrhosis Current Visit: Yes Status: Acute - Summary of Assessment and Plan Summary of Assessment and Plan: 53-year-old male with history of high triglycerides, etoh abuse, tobacco abuse, pancreatitis and nephrolithiasis who came into the hospital with abdominal and back pain after passing a kidney stone. Acute pancreatitis: CT scan of the abdomen showing acute edematous pancreatitis, repeat CT scan today showing worsening inflammation. Likely EtOH related, TG was 1200 at admission, wwnl today. We will continue management with scheduled pain medications. Sepsis: meets 3/4 criteria. 2/2 PNA. Official report did not reveal any pneumonia however reviewing CT images showed patchy infiltrate in the right l ower lobe. Leukocytosis worsened today but no bandemia, MRSA is negative. Respiratory viral panel, Legionella and Streptococcus antigens are negative. Continue Zosyn day /. IS for atelectasis. Decompensated cirrhosis: CT scan of the abdomen revealed cirrhosis with worsening ascites, hepatitis panel is negative. Likely etoh related. GI is on board. Will give albumin for his ascites. Bilateral flank pain: CT with finding of nonobstructing calculi bilaterally. Consult placed for urology common bile duct dilation: MRCP is - for choledocholithiasis. GI is consulted, no plans for procedures Transaminites: downtrending. hepatocellular pattern, suspected due to combined etoh abuse and fatty liver disease. LFT downtrending, check tomorrow level. hepatitis panel is negative. etoh abuse: on CIWA, scored 4 this AM. consulted to quit drinking and offered him acomprosate. tobacco abuse: consulted to quit smoking. High TG: normal toda. continue finofibrate dose, encouraged to quit drinking. Anxiety: Continue home medication DVT prophylaxis: Subacute heparin I reviewed independently all laboratory workup, pertinent images including x- rays and CT scans. I also reviewed independently and EKGs and my findings are in the body of my assessment and plan. I ordered the laboratory workup and images myself. I discussed finding with patient's, their families, RN's and consultants involved in the care of the patient. - Time Spent with Patient Total time spent is greater than 50% in coordination of care (as documented) at patient's floor/unit and/or counseling patient: Greater than 35 minutes Plan of Care Discussed with: patient Internal Medicine: Result - Labs CBC & Chem 7: 11/02/18 09:03 11/02/18 09:03 Labs: Short CBC 11/02/18 Range/Units 09:03 WBC 13.3 H (4.3-11.1) K/mcL Hgb 11.9 L (12.9-16.9) g/dL Hct 35.8 L (37.5-50.1) % Plt Count 86 L (140-400) K/mcL Neutrophils # 10.6 H (1.6-8.9) K/mcL BMP 11/02/18 09:03 Sodium 137 Potassium 3.4 L Chloride 101 Carbon Dioxide 25 BUN 10 Creatinine 0.61 L Glucose 116 H Calcium 8.2 L Urine 11/02/18 Range/Units 10:41 Urine Color Yellow (Yellow) Urine Clarity Clear (Clear) Urine pH 6.0 (5.0-8.0) pH Units Ur Specific [place] 1.019 (1.010-1.025) Urine Protein 30 H (Neg-Trace) mg/dL Urine Glucose (UA) Normal (Normal) mg/dL - ABG Interpretation ABG results: PT/INR, D-dimer PT 12.3 Seconds (9.4-12.1) H 10/30/18 12:15 - Impressions Impressions Abdomen/Pelvis CT 11/02/18 11:52 IMPRESSION: 1. Acute pancreatitis, substantially worse compared to the 10/29/2018 exam with low-attenuation areas along the body and tail the pancreas which may be related to areas of poor parenchymal perfusion. 2. Substantially worse ascites. 3. There is a small right and moderate left pleural effusion with areas of consolidation in the lung bases, most likely related to atelectasis. Superimposed infection cannot be excluded. 4. Bilateral nonobstructing renal calculi. 5. Right inguinal hernia containing fat. No evidence of bowel obstruction. D/ / 11/02/2018 12:04:15 Paolo Vela MD / neftali Interpreting Provider: Paolo Vela MD Consult Discharge Plan - Plan Referrals: Eugenio Ruiz MD [Primary Care Provider] - (1) Pancreatitis Qualifiers: Chronicity: acute Pancreatitis type: alcohol induced Acute pancreatitis complication: unspecified Qualified Code(s): K85.20 - Alcohol induced acute pancreatitis without necrosis or infection (8) Pneumonia Qualifiers: Pneumonia type: due to unspecified organism Laterality: right Lung location: lower lobe of lung Qualified Code(s): J18.1 - Lobar pneumonia, unspecified organism (9) Sepsis Qualifiers: Sepsis type: sepsis due to unspecified organism Sepsis acute organ dysfunction status: without acute organ dysfunction Qualified Code(s): A41.9 - Sepsis, unspecified organism (10) Liver cirrhosis Qualifiers: Hepatic cirrhosis type: alcoholic cirrhosis Ascites presence: with ascites Qualified Code(s): K70.31 - Alcoholic cirrhosis of liver with ascites
[2018-11-02] MEDS: Albumin 25% 25gram/100mL 25 GM/100 ML IV.SOLN IVPB SCH ×3 (13:35→22:56)
[2018-11-02] MEDS: Piperacillin/Tazobactam 3.375 GM in 0.9 % Sodium Chloride Mini Bag 100 ML IVPB SCH (15:55)
[2018-11-02] MEDS: *HR* OxyCODONE Immed Rel 5 MG TABLET PO PRN ×2 (15:56→19:59)
[2018-11-03] MEDS: Piperacillin/Tazobactam 3.375 GM in 0.9 % Sodium Chloride Mini Bag 100 ML IVPB SCH ×4 (00:31→22:36)
[2018-11-03] MEDS: *HR* OxyCODONE Immed Rel 5 MG TABLET PO SCH ×4 (00:32→18:51)
[2018-11-03 04:04] LABS: Hemoglobin 10.8 g/dL (12.9-16.9); Mean Corpuscular Hemoglobin 34.5 pg (28.0-33.3); Red Blood Count 3.13 M/mcL (4.19-5.50)
[2018-11-03 04:06] LABS: Hematocrit 31.7 % (37.5-50.1); Immature Platelets 5.7 % (1.1-6.1); Mean Corpuscular HGB Conc 34.1 g/dL (31.6-35.5); Mean Corpuscular Volume 101.3 fL (83.0-100.0); Mean Platelet Volume 10.5 fL (9.4-12.4); Red Cell Distribution Width 12.5 % (11.5-14.5); White Blood Count 12.2 K/mcL (4.3-11.1)
[2018-11-03 04:20] LABS: Alanine Aminotransferase 31 Units/L (7-52); Albumin 3.5 g/dL (3.5-5.7); Albumin/Globulin Ratio 1.7 (1.1-2.2); Alkaline Phosphatase 61 Units/L (34-104); Aspartate Amino Transferase 29 Units/L (13-39); BUN/Creatinine Ratio 13 (6-26); Bilirubin,Direct 0.2 mg/dL (0.0-0.2); Bilirubin,Indirect 0.4 mg/dL (0.0-1.2); Bilirubin,Total 0.6 mg/dL (0.3-1.0); Blood Urea Nitrogen 8 mg/dL (6-20); Calcium 8.5 mg/dL (8.6-10.3); Carbon Dioxide 24 mEq/L (23-29); Chloride 103 mEq/L (98-107); Globulin 2.1 g/dL (2.4-3.5); Glucose 124 mg/dL (70-105); Magnesium 1.9 mg/dL (1.6-2.6); Osmolality,Calculated 280 (280-300); Phosphorous 2.2 mg/dL (2.7-4.5); Potassium 3.6 mEq/L (3.5-5.1); Sodium 135 mEq/L (136-145); Total Protein 5.6 g/dL (6.4-8.9); eGFR For African Americans > 60 (> 60); eGFR For Non-African Americans > 60 (> 60)
[2018-11-03] MEDS: *HR* Heparin 5,000 UNIT/ML VIAL SQ SCH ×2 (05:55→18:51)
[2018-11-03] MEDS: Albumin 25% 25gram/100mL 25 GM/100 ML IV.SOLN IVPB SCH ×2 (07:37→16:36)
[2018-11-03] MEDS: Fenofibrate 54 MG TABLET PO SCH (07:42)
[2018-11-03] MEDS: Metoprolol XL (24 HR) Succ 50 MG TAB.ER.24H PO SCH (07:43)
[2018-11-03] MEDS: Vitamin B Complex/Vit C/Vit E 1 EACH TABLET PO SCH (07:43)
[2018-11-03] MEDS: Thiamine (B-1) 100 MG TABLET PO SCH (07:43)
[2018-11-03] MEDS: Cyanocobalamin (B-12) 1,000 MCG TABLET PO SCH (07:43)
[2018-11-03] MEDS: Folic Acid 1 MG TABLET PO SCH (07:43)
[2018-11-03] MEDS: *HR* OxyCODONE Immed Rel 5 MG TABLET PO PRN ×3 (10:38→22:12)
--- NOTE | 2018-11-03 10:50 | Internal Med Progress Note ---
Hospitalist Progress Note - Encounter Date of Encounter: 11/03/18 Time of Encounter: 09:00 - Subjective Interval History: Patient was seen this morning. His pain is improving and his abdominal swelling decreased with albumin infusion. History complaining about pain but better controlled compared to yesterday. He had no fever, chills or night sweats. - Exam Vitals: Temp Pulse Resp BP Pulse Ox 99.7 F H 117 16 132/82 93 11/03/18 10:11/03/18 10:11/03/18 10:11/03/18 10:11/03/18 10:28 Exam: General: Patient is alert, oriented 3. No distress Head: Atraumatic, normal inspection, normocephalic. Eye: EOMI, PERRLA, no scleral icterus noted. ENT: Mucous membranes moist. Neck: Normal inspection, Respiratory: Bibasilar crackles Cardiovascular: Regular rate and regular rhythm, S1 and S2 audible. No murmurs, rubs, or gallops. GI: Soft, epigastric tenderness with palpation. No rebound or rigidity Extremities:No joint swelling, pedal edema, or tenderness noted. Neurological: Alert, oriented 3, no focal deficits. Psychiatric: normal affect, normal mood. Skin: Dry, intact, warm. Normal color. No rashes. - Assessment and Plan (1) Pancreatitis Current Visit: Yes Status: Acute (2) Tobacco abuse Current Visit: Yes Status: Chronic (3) ETOH abuse Current Visit: Yes Status: Chronic (4) Common bile duct dilatation Current Visit: Yes Status: Suspected (5) DVT prophylaxis Current Visit: Yes Status: Acute (6) Parkinson disease Current Visit: Yes Status: Chronic (7) Hypertriglyceridemia Current Visit: No Status: Acute (8) Pneumonia Current Visit: Yes Status: Acute (9) Sepsis Current Visit: Yes Status: Acute (10) Liver cirrhosis Current Visit: Yes Status: Acute - Summary of Assessment and Plan Summary of Assessment and Plan: 53-year-old male with history of high triglycerides, etoh abuse, tobacco abuse, pancreatitis and nephrolithiasis who came into the hospital with abdominal and back pain after passing a kidney stone. Acute pancreatitis: CT scan of the abdomen showing acute edematous pancreatitis, repeat CT scan today showing worsening inflammation. Likely EtOH related, TG was 1200 at admission, wnl today. We will continue management with scheduled pain medications. Sepsis: meets 3/4 criteria. 2/2 PNA. Official report did not reveal any pneumon ia however reviewing CT images showed patchy infiltrate in the right lower lobe. Leukocytosis is improving, sputum culture is growing Streptococcus pneumonia. Respiratory viral panel, Legionella and Streptococcus antigens are negative. Continue Zosyn day 5/. IS for atelectasis, respiratory consult for flutter valve. Decompensated cirrhosis: CT scan of the abdomen revealed cirrhosis with wors ening ascites, hepatitis panel is negative. Likely etoh related. GI is on board. Finished Albumin for his ascites x 3. Will arrange for possible paracentesis tomorrow. Bilateral flank pain: CT with finding of nonobstructing calculi bilaterally. Consult placed for urology common bile duct dilation: MRCP is - for choledocholithiasis. GI is consulted, no plans for procedures Transaminites: resolved. suspected due to etoh abuse. L hepatitis panel is negative. etoh abuse: NOLAN JACKSON. consulted to quit drinking and offered him acomprosate. tobacco abuse: consulted to quit smoking. High TG: normal toda. continue finofibrate dose, encouraged to quit drinking. Anxiety: Continue home medication DVT prophylaxis: Subacute heparin - Time Spent with Patient Total time spent is greater than 50% in coordination of care (as documented) at patient's floor/unit and/or counseling patient: Plan of Care Discussed with: patient Internal Medicine: Result - Labs CBC & Chem 7: 11/03/18 03:24 11/03/18 03:24 Labs: Short CBC 11/03/18 Range/Units 03:24 WBC 12.2 H (4.3-11.1) K/mcL Hgb 10.8 L (12.9-16.9) g/dL Hct 31.7 L (37.5-50.1) % Plt Count 97 L (140-400) K/mcL BMP 11/03/18 03:24 Sodium 135 L Potassium 3.6 Chloride 103 Carbon Dioxide 24 BUN 8 Creatinine 0.63 L Glucose 124 H Calcium 8.5 L Liver Function 11/03/18 Range/Units 03:24 Total Bilirubin 0.6 (0.3-1.0) mg/dL Direct Bilirubin 0.2 (0.0-0.2) mg/dL AST 29 (13-39) Units/L ALT 31 (7-52) Units/L Alkaline Phosphatase 61 (34-104) Units/L Albumin 3.5 (3.5-5.7) g/dL Urine 11/02/18 Range/Units 10:41 Urine Color Yellow (Yellow) Urine Clarity Clear (Clear) Urine pH 6.0 (5.0-8.0) pH Units Ur Specific [place] 1.019 (1.010-1.025) Urine Protein 30 H (Neg-Trace) mg/dL Urine Glucose (UA) Normal (Normal) mg/dL - ABG Interpretation ABG results: PT/INR, D-dimer PT 12.3 Seconds (9.4-12.1) H 10/30/18 12:15 - Impressions Impressions Abdomen/Pelvis CT 11/02/18 11:52 IMPRESSION: 1. Acute pancreatitis, substantially worse compared to the 10/29/2018 exam with low-attenuation areas along the body and tail the pancreas which may be related to areas of poor parenchymal perfusion. 2. Substantially worse ascites. 3. There is a small right and moderate left pleural effusion with areas of consolidation in the lung bases, most likely related to atelectasis. Superimposed infection cannot be excluded. 4. Bilateral nonobstructing renal calculi. 5. Right inguinal hernia containing fat. No evidence of bowel obstruction. D/ / 11/02/2018 12:04:15 Paolo Vela MD / bcarter Interpreting Provider: Paolo Vela MD Consult Discharge Plan - Plan Referrals: Eugenio Ruiz MD [Primary Care Provider] - (1) Pancreatitis Qualifiers: Chronicity: acute Pancreatitis type: alcohol induced Acute pancreatitis complication: unspecified Qualified Code(s): K85.20 - Alcohol induced acute pancreatitis without necrosis or infection (8) Pneumonia Qualifiers: Pneumonia type: due to unspecified organism Laterality: right Lung location: lower lobe of lung Qualified Code(s): J18.1 - Lobar pneumonia, unspecified organism (9) Sepsis Qualifiers: Sepsis type: sepsis due to unspecified organism Sepsis acute organ dysfunction status: without acute organ dysfunction Qualified Code(s): A41.9 - Sepsis, unspecified organism (10) Liver cirrhosis Qualifiers: Hepatic cirrhosis type: alcoholic cirrhosis Ascites presence: with ascites Qualified Code(s): K70.31 - Alcoholic cirrhosis of liver with ascites
--- NOTE | 2018-11-03 10:58 | Urology - Consult Note ---
Date of Encounter: 11/03/18 Time of Encounter: 10:55 - Assessment and Plan (1) Nephrolithiasis Current Visit: Yes Status: Acute Assessment and plan: 53-year-old man seen in consultation for nephrolithiasis. I reviewed his CT sca n. He has bilateral small nonobstructing stones. There are multiple stones in both kidneys. Given his pancreatitis, he is not a very good surgical candidate. Since the stones are not obstructing, I would not recommend urgent stone extraction for them. I would recommend for him to continue to manage his pancreatitis. As that improves, we may consider outpatient, elective ureteroscopic stone extraction. Please call with any questions. Urology CN:HPI Consult date: 11/03/18 Reason for consult Urology: Other (Nephrolithiasis) History of present illness: 53-year-old man seen for history of bilateral nephrolithiasis. He reports a long-standing history of kidney stones. He says he has passed multiple stones throughout his life. He was recently admitted for abdominal pain. A CT scan was obtained which showed bilateral nonobstructing stones. He was also noted to have pancreatitis and is being treated for that. He reports his pain is controlled for a while with narcotics, but it increases over time. It is located on both sides of his back. He is concerned that the kidney stones are causing this pain. Past Med Surg Social Fam HX - Past Medical History Medical history: GERD, hyperlipidemia, kidney stones, other Additional medical history: parkinsons, insomnia, external hemorrhoids, tachycardia, stomach ulcer, pancreatitis, agressiveniess and agitation with anesthesia Psychiatric history: anxiety, depression, PTSD - Past Surgical History Surgical History: cholecystectomy Additional surgical history: multiple back and orthodic surgeries - Social History Smoking Status: Current every day smoker Packs per day: 1 Smokeless Tobacco Status: No Alcohol use: none Drug use: none - Family History Mother Hx Family Cancer: Yes Hx Family Endocrine Disorder: Yes (mother has dm) Medications and Allergies Albuterol Sulfate [Proair Hfa] 2 puff IH Q4H PRN 05/04/15 [History] Escitalopram [Lexapro] 20 mg PO DAILY 05/04/15 [History] Melatonin 10 mg PO HS 05/04/15 [History] Metoprolol XL (24 HR) Succ [Toprol Xl] 50 mg PO DAILY 05/04/15 [History] Fenofibrate [Tricor] 54 mg PO DAILY #30 tablet 05/07/15 [Rx] Mirtazapine [Remeron] 15 mg PO HS 11/12/17 [History] Pantoprazole Sodium [Protonix] 40 mg PO DAILY PRN 11/12/17 [History] Rotigotine [Neupro] 1 each TD DAILY 10/29/18 [History] Tramadol HCl [Ultram] 50 mg PO Q8H PRN 10/29/18 [History] Allergy/AdvReac Type Severity Reaction Status Date / Time acetaminophen [From Tylenol] Allergy Nausea Verified 11/12/17 09:50 haloperidol [From Haldol] AdvReac See Verified 10/30/17 09:57 Comments Review of Systems - Constitutional no chills, no fever(s) - EENT Nose, mouth and throat: no dizziness - Cardiovascular no chest pain - Respiratory no dyspnea - Gastrointestinal no nausea, no vomiting - Genitourinary flank pain, no hematuria - Musculoskeletal no back pain - Integumentary no erythema, no rash - Neurological no weakness - Psychiatric no suicidal ideation - Hematologic/Lymphatic no easy bleeding - Allergic/Immunologic no wheezing Exam Initial Vital Signs Temp Pulse Resp BP Pulse Ox 97.9 F 84 16 120/85 97 10/29/18 11:43 10/29/18 11:43 10/29/18 11:43 10/29/18 11:43 10/29/18 11:43 - General physical appearance Present: well developed, well nourished, no distress - Eyes Absent: icteric - ENT Present: normal nares - Neck Present: trachea midline - Respiratory Present: normal respiratory effort - Cardiovascular Cardiovascular exam IM: RRR - Abdomen Abdomen: Present: soft - Integumentary Present: no rash - Neurologic Present: normal coordination - Musculoskeletal Present: other (Grossly normal) Urology Results - Labs 11/03/18 03:24 11/03/18 03:24 Abnormal lab results WBC 12.2 K/mcL (4.3-11.1) H 11/03/18 03:24 RBC 3.13 M/mcL (4.19-5.50) L 11/03/18 03:24 Hgb 10.8 g/dL (12.9-16.9) L 11/03/18 03:24 Hct 31.7 % (37.5-50.1) L 11/03/18 03:24 MCV 101.3 fL (83.0-100.0) H 11/03/18 03:24 MCH 34.5 pg (28.0-33.3) H 11/03/18 03:24 Plt Count 97 K/mcL (140-400) L 11/03/18 03:24 Band Neutrophils % 10.0 % (0-4) H 10/31/18 07:07 Neutrophils # 10.6 K/mcL (1.6-8.9) H 11/02/18 09:03 Monocytes # 1.6 K/mcL (0.0-1.3) H 11/02/18 09:03 Toxic Granulation Present (Not Present) A 10/31/18 07:07 Platelet Estimate Decreased (Normal) L 11/01/18 02:21 PT 12.3 Seconds (9.4-12.1) H 10/30/18 12:15 Sodium 135 mEq/L (136-145) L 11/03/18 03:24 Potassium 3.4 mEq/L (3.5-5.1) L 11/02/18 09:03 Chloride 108 mEq/L (98-107) H 11/01/18 02:21 Carbon Dioxide 21 mEq/L (23-29) L 10/31/18 07:07 Creatinine 0.63 mg/dL (0.70-1.30) L 11/03/18 03:24 Glucose 124 mg/dL (70-105) H 11/03/18 03:24 POC Glucose 129 mg/dL (70-99) H 11/02/18 20:21 Calcium 8.5 mg/dL (8.6-10.3) L 11/03/18 03:24 Phosphorus 2.2 mg/dL (2.7-4.5) L 11/03/18 03:24 AST 47 Units/L (13-39) H 10/31/18 07:07 ALT 60 Units/L (7-52) H 10/31/18 07:07 Alkaline Phosphatase 131 Units/L (34-104) H 10/30/18 05:29 Serum Total Protein 5.6 g/dL (6.4-8.9) L 11/03/18 03:24 Albumin 2.8 g/dL (3.5-5.7) L 10/31/18 07:07 Globulin 2.1 g/dL (2.4-3.5) L 11/03/18 03:24 Triglycerides 465 mg/dL (< 150) H 10/31/18 07:07 Lipase 249 Units/L (11-82) H 10/29/18 12:23 Urine Protein 30 mg/dL (Neg-Trace) H 11/02/18 10:41 Urine Ketones 80 mg/dL (Negative) H 11/02/18 10:41 Urine Blood Trace (Negative) H 11/02/18 10:41 Ur Squamous Epith Cells Moderate per lpf (None-Few) H 11/02/18 10:41 Diabetes panel 11/03/18 Range/Units 03:24 Sodium 135 L (136-145) mEq/L Potassium 3.6 (3.5-5.1) mEq/L Chloride 103 (98-107) mEq/L Carbon Dioxide 24 (23-29) mEq/L BUN 8 (6-20) mg/dL Creatinine 0.63 L (0.70-1.30) mg/dL Glucose 124 H (70-105) mg/dL Calcium 8.5 L (8.6-10.3) mg/dL AST 29 (13-39) Units/L ALT 31 (7-52) Units/L Alkaline Phosphatase 61 (34-104) Units/L Albumin 3.5 (3.5-5.7) g/dL Calcium panel 11/03/18 Range/Units 03:24 Calcium 8.5 L (8.6-10.3) mg/dL Phosphorus 2.2 L (2.7-4.5) mg/dL Albumin 3.5 (3.5-5.7) g/dL Pituitary panel 11/03/18 Range/Units 03:24 Sodium 135 L (136-145) mEq/L Potassium 3.6 (3.5-5.1) mEq/L Chloride 103 (98-107) mEq/L Carbon Dioxide 24 (23-29) mEq/L BUN 8 (6-20) mg/dL Creatinine 0.63 L (0.70-1.30) mg/dL Glucose 124 H (70-105) mg/dL Calcium 8.5 L (8.6-10.3) mg/dL Adrenal panel 09/22/19 Range/Units 03:24 Sodium 135 L (136-145) mEq/L Potassium 3.6 (3.5-5.1) mEq/L Chloride 103 (98-107) mEq/L Carbon Dioxide 24 (23-29) mEq/L BUN 8 (6-20) mg/dL Creatinine 0.63 L (0.70-1.30) mg/dL Glucose 124 H (70-105) mg/dL Calcium 8.5 L (8.6-10.3) mg/dL Total Bilirubin 0.6 (0.3-1.0) mg/dL AST 29 (13-39) Units/L ALT 31 (7-52) Units/L Alkaline Phosphatase 61 (34-104) Units/L Albumin 3.5 (3.5-5.7) g/dL All other labs normal. - Imaging CT scan - abdomen: report reviewed, image reviewed CT scan - pelvis: report reviewed, image reviewed Consult Discharge Plan - Plan Referrals: Eugenio Ruiz MD [Primary Care Provider] -
[2018-11-03] MEDS: Mirtazapine 15 MG TABLET PO SCH (22:12)
[2018-11-03] MEDS: Melatonin 3 MG TABLET PO SCH (22:12)
[2018-11-04] MEDS: Albumin 25% 25gram/100mL 25 GM/100 ML IV.SOLN IVPB SCH (00:19)
[2018-11-04] MEDS: *HR* OxyCODONE Immed Rel 5 MG TABLET PO SCH ×5 (00:24→23:20)
[2018-11-04] MEDS: Piperacillin/Tazobactam 3.375 GM in 0.9 % Sodium Chloride Mini Bag 100 ML IVPB SCH ×4 (00:25→23:21)
[2018-11-04 04:52] LABS: Hematocrit 30.4 % (37.5-50.1); Hemoglobin 10.2 g/dL (12.9-16.9); Mean Corpuscular HGB Conc 33.6 g/dL (31.6-35.5); Mean Corpuscular Hemoglobin 34.2 pg (28.0-33.3); Mean Platelet Volume 10.4 fL (9.4-12.4); Platelet Count 125 K/mcL (140-400); Red Blood Count 2.98 M/mcL (4.19-5.50); Red Cell Distribution Width 12.7 % (11.5-14.5); White Blood Count 11.3 K/mcL (4.3-11.1)
[2018-11-04 05:03] LABS: INR 1.1; Prothrombin Time 12.4 Seconds (9.4-12.1)
[2018-11-04 05:11] LABS: BUN/Creatinine Ratio 15 (6-26); Blood Urea Nitrogen 10 mg/dL (6-20); Carbon Dioxide 25 mEq/L (23-29); Chloride 102 mEq/L (98-107); Glucose 123 mg/dL (70-105); Osmolality,Calculated 282 (280-300); Potassium 3.3 mEq/L (3.5-5.1); Sodium 136 mEq/L (136-145); eGFR For African Americans > 60 (> 60); eGFR For Non-African Americans > 60 (> 60)
[2018-11-04 05:14] LABS: Albumin 3.8 g/dL (3.5-5.7); Albumin/Globulin Ratio 1.8 (1.1-2.2); Bilirubin,Direct 0.2 mg/dL (0.0-0.2); Bilirubin,Indirect 0.4 mg/dL (0.0-1.2); Bilirubin,Total 0.6 mg/dL (0.3-1.0); Globulin 2.1 g/dL (2.4-3.5); Total Protein 5.9 g/dL (6.4-8.9)
[2018-11-04] MEDS: *HR* Heparin 5,000 UNIT/ML VIAL SQ SCH ×2 (05:41→16:52)
[2018-11-04] MEDS ORDERED: Potassium Chloride Elixir 20 MEQ/15 ML UDC PO ONE (07:57)
[2018-11-04] MEDS: Cyanocobalamin (B-12) 1,000 MCG TABLET PO SCH (08:04)
[2018-11-04] MEDS: Fenofibrate 54 MG TABLET PO SCH (08:04)
[2018-11-04] MEDS: Folic Acid 1 MG TABLET PO SCH (08:05)
[2018-11-04] MEDS: Thiamine (B-1) 100 MG TABLET PO SCH (08:05)
[2018-11-04] MEDS: Metoprolol XL (24 HR) Succ 50 MG TAB.ER.24H PO SCH (08:05)
[2018-11-04] MEDS: Vitamin B Complex/Vit C/Vit E 1 EACH TABLET PO SCH (09:03)
--- NOTE | 2018-11-04 12:13 | IR Procedure Note ---
Date of procedure: 11/04/18 Consent Obtained: Written consent Timeout: Correct patient and procedure verified, Correct site verified, Time out performed, Skin prep completed Local anesthetic: Lidocaine 1% Was there an prosthetic assistant present: No Estimated blood loss (cc): 0 Complications: None; Tolerated procedure well Indications: left pleural effusion and SOB Procedure Performed: Left thoracentesis Results/Findings (any specimens removed): Decrease ascites so no paracentesis, moderate left pleural effusion so left thoracentesis performed Post Procedure Treatment Plan: monitor on floor Specimen: to path
--- NOTE | 2018-11-04 12:32 | Internal Med Progress Note ---
Hospitalist Progress Note - Encounter Date of Encounter: 11/04/18 Time of Encounter: 09:20 - Subjective Interval History: Patient was seen this morning. He feels better but still complaining about abdominal pain. He had no flank pain as compared to before. He denies fever, chills or night sweats. - Exam Vitals: Temp Pulse Resp BP Pulse Ox 99.2 F 86 15 129/86 93 11/04/18 06:30 11/04/18 06:30 11/04/18 06:30 11/04/18 06:30 11/04/18 08:16 Exam: General: Patient is alert, oriented 3. No distress Head: Atraumatic, normal inspection, normocephalic. Eye: EOMI, PERRLA, no scleral icterus noted. ENT: Mucous membranes moist. Neck: Normal inspection, Respiratory: Bibasilar crackles Cardiovascular: Regular rate and regular rhythm, S1 and S2 audible. No murmurs, rubs, or gallops. GI: Soft, epigastric tenderness with palpation. No rebound or rigidity Extremities:No joint swelling, pedal edema, or tenderness noted. Neurological: Alert, oriented 3, no focal deficits. Psychiatric: normal affect, normal mood. Skin: Dry, intact, warm. Normal color. No rashes. - Assessment and Plan (1) Pancreatitis Current Visit: Yes Status: Acute (2) Tobacco abuse Current Visit: Yes Status: Chronic (3) ETOH abuse Current Visit: Yes Status: Chronic (4) Common bile duct dilatation Current Visit: Yes Status: Suspected (5) DVT prophylaxis Current Visit: Yes Status: Acute (6) Parkinson disease Current Visit: Yes Status: Chronic (7) Hypertriglyceridemia Current Visit: Yes Status: Resolved (8) Pneumonia Current Visit: Yes Status: Resolved (9) Sepsis Current Visit: Yes Status: Resolved (10) Liver cirrhosis Current Visit: Yes Status: Acute - Summary of Assessment and Plan Summary of Assessment and Plan: 53-year-old male with history of high triglycerides, etoh abuse, tobacco abuse, pancreatitis and nephrolithiasis who came into the hospital with abdominal and back pain after passing a kidney stone. Acute pancreatitis: CT scan of the abdomen showing acute edematous pancreatitis, repeat CT scan 11/02 showing worsening inflammation. Likely EtOH related, TG was 1200 at admission, then normalized. We will continue management with scheduled pain medications. On regular diet. Sepsis: meets 3/4 criteria. 2/2 PNA. Official report did not reveal any pneumonia however reviewing CT images showed patchy infiltrate in the right lower lobe. Leukocytosis is improving, sputum culture is growing Streptococcus pneumonia. Continue Zosyn day 07/19. IS for atelectasis, respiratory consult for flutter valve. Decompensated cirrhosis: MELD-11. CT scan of the abdomen revealed cirrhosis with worsening ascites on 11/02. Finished Albumin for his ascites x 3. paracentesis wasn't done due to resolution of ascites. I was contacted by IR who did thoracocentesis instead. Pleural effusion: Likely related to his infection, atelectasis and cirrhosis. Thoracocentesis done by IR today. Waiting fluid analysis. Bilateral flank pain: CT with finding of nonobstructing calculi bilaterally. Urology is consulted, no plans for inpatient procedures. common bile duct dilation: MRCP is - for choledocholithiasis. GI is consulted, no plans for procedures Transaminites: resolved. suspected due to etoh abuse. L hepatitis panel is negative. etoh abuse: NOLAN JACKSON. consulted to quit drinking and offered him acomprosate. tobacco abuse: consulted to quit smoking. High TG: normal level now. continue finofibrate dose, encouraged to quit drinking. Anxiety: Continue home medication DVT prophylaxis: Subacute heparin - Time Spent with Patient Total time spent is greater than 50% in coordination of care (as documented) at patient's floor/unit and/or counseling patient: Plan of Care Discussed with: patient Internal Medicine: Result - Labs CBC & Chem 7: 11/04/18 04:31 11/04/18 04:31 Labs: Short CBC 11/04/18 Range/Units 04:31 WBC 11.3 H (4.3-11.1) K/mcL Hgb 10.2 L (12.9-16.9) g/dL Hct 30.4 L (37.5-50.1) % Plt Count 125 L (140-400) K/mcL BMP 11/04/18 04:31 Sodium 136 Potassium 3.3 L Chloride 102 Carbon Dioxide 25 BUN 10 Creatinine 0.66 L Glucose 123 H Calcium 9.0 Liver Function 11/04/18 Range/Units 04:31 Total Bilirubin 0.6 (0.3-1.0) mg/dL Direct Bilirubin 0.2 (0.0-0.2) mg/dL AST 24 (13-39) Units/L ALT 26 (7-52) Units/L Alkaline Phosphatase 62 (34-104) Units/L Albumin 3.8 (3.5-5.7) g/dL - ABG Interpretation ABG results: PT/INR, D-dimer PT 12.4 Seconds (9.4-12.1) H 11/04/18 04:31 Consult Discharge Plan - Plan Referrals: Eugenio Ruiz MD [Primary Care Provider] - (1) Pancreatitis Qualifiers: Chronicity: acute Pancreatitis type: alcohol induced Acute pancreatitis complication: unspecified Qualified Code(s): K85.20 - Alcohol induced acute pancreatitis without necrosis or infection (8) Pneumonia Qualifiers: Pneumonia type: due to unspecified organism Laterality: right Lung location: lower lobe of lung Qualified Code(s): J18.1 - Lobar pneumonia, unspecified organism (9) Sepsis Qualifiers: Sepsis type: sepsis due to unspecified organism Sepsis acute organ dysfunction status: without acute organ dysfunction Qualified Code(s): A41.9 - Sepsis, unspecified organism (10) Liver cirrhosis Qualifiers: Hepatic cirrhosis type: alcoholic cirrhosis Ascites presence: with ascites Qualified Code(s): K70.31 - Alcoholic cirrhosis of liver with ascites
[2018-11-04 12:35] LABS: Lactate Dehydrogenase 225 Units/L (140-271)
[2018-11-04 16:34] LABS: Amylase,Pleural Fluid 21 Units/L (No Ref Range); Glucose,Pleural Fluid 137 mg/dL (No Ref Range); LDH,Pleural Fluid 254 Units/L (No Ref Range); Total Protein,Pleural Fluid < 3.0 g/dL
[2018-11-04 18:32] LABS: RBC,Pleural Fluid < 0.002 M/mcL
[2018-11-04] MEDS: *HR* OxyCODONE Immed Rel 5 MG TABLET PO PRN (19:41)
[2018-11-04 21:43] LABS: Appearance of Pleural Fl Clear (Clear)
[2018-11-04] MEDS: Mirtazapine 15 MG TABLET PO SCH (23:20)
[2018-11-04] MEDS: Melatonin 3 MG TABLET PO SCH (23:21)
[2018-11-05 04:19] LABS: Hematocrit 29.4 % (37.5-50.1); Hemoglobin 9.8 g/dL (12.9-16.9); Mean Corpuscular HGB Conc 33.3 g/dL (31.6-35.5); Mean Corpuscular Hemoglobin 33.6 pg (28.0-33.3); Mean Corpuscular Volume 100.7 fL (83.0-100.0); Mean Platelet Volume 10.6 fL (9.4-12.4); Platelet Count 166 K/mcL (140-400); Red Blood Count 2.92 M/mcL (4.19-5.50); Red Cell Distribution Width 12.7 % (11.5-14.5); White Blood Count 13.8 K/mcL (4.3-11.1)
[2018-11-05] MEDS: *HR* Heparin 5,000 UNIT/ML VIAL SQ SCH ×2 (04:56→18:16)
[2018-11-05] MEDS: *HR* OxyCODONE Immed Rel 5 MG TABLET PO SCH ×4 (04:56→23:14)
[2018-11-05 05:04] LABS: Eosinophils # 0.6 K/mcL (0.0-0.6); Lymphocytes # 1.1 K/mcL (0.6-4.6); Monocytes # 1.9 K/mcL (0.0-1.3); Neutrophils # 10.2 K/mcL (1.6-8.9)
[2018-11-05 05:05] LABS: Platelet Estimate Normal (Normal); Toxic Vacuolation Present (Not Present)
[2018-11-05] MEDS: Piperacillin/Tazobactam 3.375 GM in 0.9 % Sodium Chloride Mini Bag 100 ML IVPB SCH ×3 (08:27→23:15)
[2018-11-05] MEDS: Metoprolol XL (24 HR) Succ 50 MG TAB.ER.24H PO SCH (08:28)
[2018-11-05] MEDS: Cyanocobalamin (B-12) 1,000 MCG TABLET PO SCH (08:28)
[2018-11-05] MEDS: Fenofibrate 54 MG TABLET PO SCH (08:28)
[2018-11-05] MEDS: Folic Acid 1 MG TABLET PO SCH (08:28)
[2018-11-05] MEDS: Vitamin B Complex/Vit C/Vit E 1 EACH TABLET PO SCH (08:28)
[2018-11-05] MEDS: Thiamine (B-1) 100 MG TABLET PO SCH (08:29)
--- NOTE | 2018-11-05 12:01 | Internal Med Progress Note ---
Hospitalist Progress Note - Encounter Date of Encounter: 11/05/18 Time of Encounter: 10:20 - Subjective Interval History: Patient was seen this morning. He looks the better since I started taking care of him. He denied chest pain, shortness of breath palpitation. His abdominal pain is more under control now. His appetite started to improve. He had low- grade temperature yesterday night but none this morning - Exam Vitals: Temp Pulse Resp BP Pulse Ox 98.5 F 83 16 120/80 91 11/05/18 11:23 11/05/18 11:23 11/05/18 11:23 11/05/18 11:23 11/05/18 11:23 Exam: General: Patient is alert, oriented 3. No distress Head: Atraumatic, normal inspection, normocephalic. Eye: EOMI, PERRLA, no scleral icterus noted. ENT: Mucous membranes moist. Neck: Normal inspection, Respiratory: Bibasilar crackles Cardiovascular: Regular rate and regular rhythm, S1 and S2 audible. No murmurs, rubs, or gallops. GI: Soft, epigastric tenderness with palpation. No rebound or rigidity Extremities:No joint swelling, pedal edema, or tenderness noted. Neurological: Alert, oriented 3, no focal deficits. Psychiatric: normal affect, normal mood. Skin: Dry, intact, warm. Normal color. No rashes. - Assessment and Plan (1) Pneumonia Current Visit: Yes Status: Resolved (2) Pancreatitis Current Visit: Yes Status: Acute (3) Tobacco abuse Current Visit: Yes Status: Chronic (4) ETOH abuse Current Visit: Yes Status: Chronic (5) Common bile duct dilatation Current Visit: Yes Status: Suspected (6) DVT prophylaxis Current Visit: Yes Status: Acute (7) Parkinson disease Current Visit: Yes Status: Chronic (8) Hypertriglyceridemia Current Visit: Yes Status: Resolved (9) Sepsis Current Visit: Yes Status: Resolved (10) Liver cirrhosis Current Visit: Yes Status: Acute - Summary of Assessment and Plan Summary of Assessment and Plan: 53-year-old male with history of high triglycerides, etoh abuse, tobacco abuse, pancreatitis and nephrolithiasis who came into the hospital with abdominal and back pain after passing a kidney stone. Sepsis: meets 3/4 criteria. 2/2 PNA. Official report did not reveal any pneumonia however reviewing CT images showed patchy infiltrate in the right lower lobe. Leukocytosis is worse today 11/05 with bandemia sputum culture is growing Streptococcus pneumonia. Continue Zosyn day 08/21. IS for atelectasis, respiratory consult for flutter valve. He had low grade temp overnight. CXR today 11/05 with left basilar airspace disease which is the same as previous chest x-ray. Blood cultures, sputum cultures and UA ordered. Pending thoracocentesis fluid culture. Vision denies any diarrhea Acute pancreatitis: CT scan of the abdomen showing acute edematous pancreatitis, repeat CT scan 11/02 showing worsening inflammation. Likely EtOH related, TG was 1200 at admission, then normalized. We will continue management with scheduled pain medications. On regular diet. Decompensated cirrhosis: MELD-11. CT scan of the abdomen revealed cirrhosis with worsening ascites on 11/02. Finished Albumin for his ascites x 3. paracentesis wasn't done due to resolution of ascites. F/U with GI as outpatient Pleural effusion:exudative, Likely related to his PNA. Thoracocentesis done by IR on 11/04 with 500 ml seroangious fluid darined. Cx are pending. Bilateral flank pain: resolved. CT with finding of nonobstructing calculi bilaterally. Urology is consulted, no plans for inpatient procedures. common bile duct dilation: MRCP is - for choledocholithiasis. GI is consulted, no plans for procedures Transaminites: resolved. suspected due to etoh abuse. L hepatitis panel is negative. etoh abuse: NOLAN JACKSON. consulted to quit drinking and offered him acomprosate. tobacco abuse: consulted to quit smoking. High TG: normal level now. continue finofibrate dose, encouraged to quit drinking. Anxiety: Continue home medication DVT prophylaxis: Subacute heparin Disposition: Plans on discharge tomorrow - Time Spent with Patient Total time spent is greater than 50% in coordination of care (as documented) at patient's floor/unit and/or counseling patient: Plan of Care Discussed with: patient Internal Medicine: Result - Labs CBC & Chem 7: 11/05/18 03:22 11/04/18 04:31 Labs: Short CBC 11/05/18 Range/Units 03:22 WBC 13.8 H (4.3-11.1) K/mcL Hgb 9.8 L (12.9-16.9) g/dL Hct 29.4 L (37.5-50.1) % Plt Count 166 (140-400) K/mcL Neutrophils # 10.2 H (1.6-8.9) K/mcL BMP 11/04/18 04:31 Sodium 136 Potassium 3.3 L Chloride 102 Carbon Dioxide 25 BUN 10 Creatinine 0.66 L Glucose 123 H Calcium 9.0 - ABG Interpretation ABG results: PT/INR, D-dimer PT 12.4 Seconds (9.4-12.1) H 11/04/18 04:31 - Impressions Impressions Chest X-Ray 11/04/18 12:46 IMPRESSION: 1. No pneumothorax status post left thoracentesis. 2. Small bilateral pleural effusions. 3. Left more than right basilar opacities compatible atelectasis/infiltrates. D/ / Jennifer Qiu MD / Jennifer Qiu MD Interpreting Provider: Jennifer Qiu MD Abdomen/Pelvis/Transvag US 11/04/18 12:59 IMPRESSION: 1. CT guided left thoracentesis as discussed above. D/ / Wilfrid Gilman MD / Wilfrid Gilman MD Interpreting Provider: Wilfrid Gilman MD Needle Aspiration CT 11/04/18 12:59 IMPRESSION: 1. CT guided left thoracentesis as discussed above. D/ / Wilfrid Gilman MD / Wilfrid Gilman MD Interpreting Provider: Wilfrid Gilman MD Chest X-Ray 11/05/18 10:38 IMPRESSION: Stable chest. D/ / Tiago Terrazas MD / Tiago Terrazas MD Interpreting Provider: Tiago Terrazas MD Consult Discharge Plan - Plan Referrals: Robert Gupta MD [Partnered Physician] - 11/18/18 7:00 am Eugenio Ruiz MD [Primary Care Provider] - (1) Pneumonia Qualifiers: Pneumonia type: due to unspecified organism Laterality: right Lung location: lower lobe of lung Qualified Code(s): J18.1 - Lobar pneumonia, unspecified organism (2) Pancreatitis Qualifiers: Chronicity: acute Pancreatitis type: alcohol induced Acute pancreatitis complication: unspecified Qualified Code(s): K85.20 - Alcohol induced acute pancreatitis without necrosis or infection (9) Sepsis Qualifiers: Sepsis type: sepsis due to unspecified organism Sepsis acute organ dysfunction status: without acute organ dysfunction Qualified Code(s): A41.9 - Sepsis, unspecified organism (10) Liver cirrhosis Qualifiers: Hepatic cirrhosis type: alcoholic cirrhosis Ascites presence: with ascites Qualified Code(s): K70.31 - Alcoholic cirrhosis of liver with ascites
[2018-11-05] MEDS: *HR* OxyCODONE Immed Rel 5 MG TABLET PO PRN (16:19)
[2018-11-05 20:55] LABS: Bilirubin,Urine Negative (Negative); Blood,Urine Negative (Negative); Clarity,Urine Clear (Clear); Color,Urine Yellow (Yellow); Glucose,Urine (UA) Normal (Normal); Ketones,Urine Negative (Negative); Leukocyte Esterase,Urine Negative (Negative); Nitrite,Urine Negative (Negative); PH,Urine 7.5 pH Units (5.0-8.0); Protein,Urine 30 mg/dL (Neg-Trace); Specific Gravity,Urine 1.021 (1.010-1.025); Urobilinogen,Urine Normal (Normal)
[2018-11-05 20:58] LABS: Bacteria,Urine None Seen per hpf (None-Few); Hyaline Casts,Urine None Seen per lpf (None-Few); RBC,Urine 0-3 per hpf (0-3); Squamous Epithelial Cell,Urine Moderate per lpf (None-Few); WBC,Urine 0-3 per hpf (0-3)
[2018-11-05] MEDS: Mirtazapine 15 MG TABLET PO SCH (23:14)
[2018-11-05] MEDS: Melatonin 3 MG TABLET PO SCH (23:15)
[2018-11-06] MEDS: *HR* OxyCODONE Immed Rel 5 MG TABLET PO PRN (03:43)
[2018-11-06 04:41] LABS: Basophils # 0.1 K/mcL (0.0-0.2); Basophils % 0.5 %; Eosinophils # 0.2 K/mcL (0.0-0.6); Eosinophils % 1.3 %; Hematocrit 30.1 % (37.5-50.1); Hemoglobin 10.2 g/dL (12.9-16.9); Immature Granulocytes % 2.7 % (0-4); Lymphocytes # 1.3 K/mcL (0.6-4.6); Lymphocytes % 7.7 %; Mean Corpuscular HGB Conc 33.9 g/dL (31.6-35.5); Mean Corpuscular Hemoglobin 33.8 pg (28.0-33.3); Mean Corpuscular Volume 99.7 fL (83.0-100.0); Mean Platelet Volume 10.7 fL (9.4-12.4); Monocytes # 1.6 K/mcL (0.0-1.3); Monocytes % 9.8 %; Neutrophils # 13.1 K/mcL (1.6-8.9); Platelet Count 212 K/mcL (140-400); Red Blood Count 3.02 M/mcL (4.19-5.50); Red Cell Distribution Width 12.7 % (11.5-14.5); White Blood Count 16.8 K/mcL (4.3-11.1)
[2018-11-06 04:59] LABS: Alanine Aminotransferase 27 Units/L (7-52); Albumin 3.2 g/dL (3.5-5.7); Albumin/Globulin Ratio 1.5 (1.1-2.2); Alkaline Phosphatase 68 Units/L (34-104); Aspartate Amino Transferase 24 Units/L (13-39); BUN/Creatinine Ratio 14 (6-26); Bilirubin,Total 0.3 mg/dL (0.3-1.0); Blood Urea Nitrogen 11 mg/dL (6-20); Calcium 8.6 mg/dL (8.6-10.3); Carbon Dioxide 26 mEq/L (23-29); Chloride 100 mEq/L (98-107); Globulin 2.2 g/dL (2.4-3.5); Glucose 159 mg/dL (70-105); Osmolality,Calculated 281 (280-300); Potassium 3.5 mEq/L (3.5-5.1); Sodium 134 mEq/L (136-145); Total Protein 5.4 g/dL (6.4-8.9); eGFR For African Americans > 60 (> 60); eGFR For Non-African Americans > 60 (> 60)
[2018-11-06] MEDS: *HR* Heparin 5,000 UNIT/ML VIAL SQ SCH ×2 (06:03→17:15)
[2018-11-06] MEDS: *HR* OxyCODONE Immed Rel 5 MG TABLET PO SCH ×3 (06:03→17:15)
[2018-11-06] MEDS: Cyanocobalamin (B-12) 1,000 MCG TABLET PO SCH (08:29)
[2018-11-06] MEDS: Fenofibrate 54 MG TABLET PO SCH (08:29)
[2018-11-06] MEDS: Piperacillin/Tazobactam 3.375 GM in 0.9 % Sodium Chloride Mini Bag 100 ML IVPB SCH ×2 (08:30→17:14)
[2018-11-06] MEDS: Vitamin B Complex/Vit C/Vit E 1 EACH TABLET PO SCH (08:30)
[2018-11-06] MEDS: Metoprolol XL (24 HR) Succ 50 MG TAB.ER.24H PO SCH (08:30)
[2018-11-06] MEDS: Folic Acid 1 MG TABLET PO SCH (08:30)
[2018-11-06] MEDS: Thiamine (B-1) 100 MG TABLET PO SCH (08:30)
[2018-11-06] MEDS ORDERED: Isovue-370 500 ML BOTTLE IVP ONE (11:54)
[2018-11-06 12:15] LABS: Lipase 78 Units/L (11-82)
--- NOTE | 2018-11-06 13:10 | Event Note ---
Date of Encounter: 11/06/18 Time of Encounter: 13:[address] Haskins. Repeat CT A/P 11/02 showed worsening pancreatitis compared to CT A/P 10/29. Was on regular diet since 11/01. Diet changed to clear liquid diet today. Recommend NPO until pain improves. Continue pain control and anti-emetics PRN. If unable to tolerate PO intake, may consider Dobhoff.
--- NOTE | 2018-11-06 15:49 | Internal Med Progress Note ---
Hospitalist Progress Note - Encounter Date of Encounter: 11/06/18 Time of Encounter: 10:00 - Subjective Interval History: No acute events overnight. Continues to complain of abdominal pain - Exam Vitals: Temp Pulse Resp BP Pulse Ox 98.2 F 82 16 99/64 93 11/06/18 14:16 11/06/18 14:16 11/06/18 14:16 11/06/18 14:16 11/06/18 14:16 Exam: General: Patient is alert, oriented 3. No distress Head: Atraumatic, normal inspection, normocephalic. Eye: EOMI, PERRLA, no scleral icterus noted. ENT: Mucous membranes moist. Neck: Normal inspection, Respiratory: Bibasilar crackles Cardiovascular: Regular rate and regular rhythm, S1 and S2 audible. No murmurs, rubs, or gallops. GI: Soft, epigastric tenderness with palpation. No rebound or rigidity Extremities:No joint swelling, pedal edema, or tenderness noted. Neurological: Alert, oriented 3, no focal deficits. Psychiatric: normal affect, normal mood. Skin: Dry, intact, warm. Normal color. No rashes. - Assessment and Plan (1) Pancreatitis Current Visit: Yes Status: Acute Assessment and Plan: Secondary to alcohol abuse. LAst CT scan showing worsening pancreatitis Seen by GI today, recommend keeping him NPO, will give IV fluids and pain control Repeat CT abdomen. Continue zosyn for leukocytosis and severe pancreatitis (2) Tobacco abuse Current Visit: Yes Status: Chronic Assessment and Plan: On nicotine patch (3) ETOH abuse Current Visit: Yes Status: Chronic Assessment and Plan: Continue CIWA scale. No sign of withdrawal (4) Common bile duct dilatation Current Visit: Yes Status: Suspected Assessment and Plan: Seen by GI. He s/p cholecystectomy. No acute intervention (5) DVT prophylaxis Current Visit: Yes Status: Acute Assessment and Plan: Heparin sc (6) Parkinson disease Current Visit: Yes Status: Chronic Assessment and Plan: No acute intervention. Continue home meds (7) Hypertriglyceridemia Current Visit: Yes Status: Resolved Assessment and Plan: Resolved DVT Prophylaxis: Continue heparin sc - Time Spent with Patient Total time spent is greater than 50% in coordination of care (as documented) at patient's floor/unit and/or counseling patient: Internal Medicine: Result - Labs CBC & Chem 7: 11/06/18 03:56 11/06/18 03:56 Labs: Short CBC 11/06/18 Range/Units 03:56 WBC 16.8 H (4.3-11.1) K/mcL Hgb 10.2 L (12.9-16.9) g/dL Hct 30.1 L (37.5-50.1) % Plt Count 212 (140-400) K/mcL Neutrophils # 13.1 H (1.6-8.9) K/mcL BMP 11/06/18 03:56 Sodium 134 L Potassium 3.5 Chloride 100 Carbon Dioxide 26 BUN 11 Creatinine 0.76 Glucose 159 H Calcium 8.6 Liver Function 11/06/18 Range/Units 03:56 Total Bilirubin 0.3 (0.3-1.0) mg/dL AST 24 (13-39) Units/L ALT 27 (7-52) Units/L Alkaline Phosphatase 68 (34-104) Units/L Albumin 3.2 L (3.5-5.7) g/dL Urine 11/05/18 Range/Units 20:35 Urine Color Yellow (Yellow) Urine Clarity Clear (Clear) Urine pH 7.5 (5.0-8.0) pH Units Ur Specific [place] 1.021 (1.010-1.025) Urine Protein 30 H (Neg-Trace) mg/dL Urine Glucose (UA) Normal (Normal) mg/dL - ABG Interpretation ABG results: PT/INR, D-dimer PT 12.4 Seconds (9.4-12.1) H 11/04/18 04:31 Consult Discharge Plan - Plan Referrals: Robert Gupta MD [Partnered Physician] - 11/18/18 7:00 am Eugenio Ruiz MD [Primary Care Provider] - (1) Pancreatitis Qualifiers: Chronicity: acute Pancreatitis type: alcohol induced Acute pancreatitis complication: unspecified Qualified Code(s): K85.20 - Alcohol induced acute pancreatitis without necrosis or infection
[2018-11-06] MEDS: Nicotine 21 MG PATCH.TD24 TD SCH (17:14)
[2018-11-06] MEDS: Mirtazapine 15 MG TABLET PO SCH (21:13)
[2018-11-06] MEDS: Melatonin 3 MG TABLET PO SCH (21:13)
[2018-11-07] MEDS: *HR* OxyCODONE Immed Rel 5 MG TABLET PO SCH ×3 (00:54→12:26)
[2018-11-07] MEDS: Piperacillin/Tazobactam 3.375 GM in 0.9 % Sodium Chloride Mini Bag 100 ML IVPB SCH ×2 (00:56→08:33)
[2018-11-07] MEDS: *HR* Heparin 5,000 UNIT/ML VIAL SQ SCH (06:32)
[2018-11-07] MEDS: Thiamine (B-1) 100 MG TABLET PO SCH (08:33)
[2018-11-07] MEDS: Metoprolol XL (24 HR) Succ 50 MG TAB.ER.24H PO SCH (08:33)
[2018-11-07] MEDS: Fenofibrate 54 MG TABLET PO SCH (08:33)
[2018-11-07] MEDS: Vitamin B Complex/Vit C/Vit E 1 EACH TABLET PO SCH (08:33)
[2018-11-07] MEDS: Folic Acid 1 MG TABLET PO SCH (08:33)
[2018-11-07] MEDS: Cyanocobalamin (B-12) 1,000 MCG TABLET PO SCH (08:33)
[2018-11-07] MEDS: Nicotine 21 MG PATCH.TD24 TD SCH (08:34)
[2018-11-07 09:28] LABS: Basophils # 0.1 K/mcL (0.0-0.2); Basophils % 0.4 %; Eosinophils # 0.3 K/mcL (0.0-0.6); Eosinophils % 1.2 %; Hemoglobin 10.6 g/dL (12.9-16.9); Immature Granulocytes % 2.2 % (0-4); Lymphocytes # 1.2 K/mcL (0.6-4.6); Mean Corpuscular HGB Conc 33.1 g/dL (31.6-35.5); Mean Corpuscular Hemoglobin 33.3 pg (28.0-33.3); Mean Corpuscular Volume 100.6 fL (83.0-100.0); Mean Platelet Volume 10.7 fL (9.4-12.4); Monocytes # 1.8 K/mcL (0.0-1.3); Monocytes % 8.7 %; Platelet Count 238 K/mcL (140-400); Red Blood Count 3.18 M/mcL (4.19-5.50); Red Cell Distribution Width 12.8 % (11.5-14.5); Segmented Neutrophils % 81.5 %; White Blood Count 20.8 K/mcL (4.3-11.1)
[2018-11-07 09:41] LABS: BUN/Creatinine Ratio 14 (6-26); Blood Urea Nitrogen 9 mg/dL (6-20); Calcium 8.7 mg/dL (8.6-10.3); Carbon Dioxide 28 mEq/L (23-29); Chloride 97 mEq/L (98-107); Glucose 112 mg/dL (70-105); Osmolality,Calculated 275 (280-300); Potassium 3.8 mEq/L (3.5-5.1); Sodium 133 mEq/L (136-145); eGFR For African Americans > 60 (> 60); eGFR For Non-African Americans > 60 (> 60)
--- NOTE | 2018-11-07 15:20 | Discharge Summary ---
Date of Encounter: 11/07/18 Time of Encounter: 09:00 - Discharge Diagnosis (1) Pancreatitis Priority: Primary Status: Acute Assessment and Plan: 53 year old male with history of etoh abuse, acute pancreatitis, Parkinson disease, nephrolithiasis who came into the hospital due to back pain. His pain started yesterday and gradually got worse, intermittent, 6/10, nonradiating. He denied nausea/vomiting/jaundice or itching. He passed a kidney stone today and he denied any dysuria, hematuria, or polyuria. He has no fever, chills or night sweats. He drinks vodka 34 times week with no previous history of withdrawal, seizures or hallucinations. He thinks that his pain is different than his pancreatitis pain in the past. He was assessed with pancreatitis secondary to alcohol abuse. He was noted to have an elevated triglyceride level as well of 1200 on admission which has trended down. He had a CT of the abdomen and pelvis which showed acute interstitial edematous pancreatitis and MRI of the abdomen which showed acute uncomplicated pancreatitis with biliary duct dilation. He was managed with Iv fluids, pain control and diet was advanced to regular diet. HE continued to complain of abdominal pain and repeat CT scan yesterday showed evidence of possible necrosis of the tail of the pancreas as well as large amount of surrounding fluid around the pancreas. Surgery was consulted who recommended transfer to a tertiary center for possible drainage. HE was accepted at [facility] He was also treated for sepsis due to pneumonia and has been on zosyn. He had a thoracentesis for pleural effusion with about 500ml of fluid drained on 11/04. 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 35 minutes was spent discharging this patient Qualifiers: Chronicity: acute Pancreatitis type: alcohol induced Acute pancreatitis complication: unspecified Qualified Code(s): K85.20 - Alcohol induced acute pancreatitis without necrosis or infection (2) Tobacco abuse Priority: Primary Status: Chronic (3) ETOH abuse Priority: Primary Status: Chronic (4) Common bile duct dilatation Priority: Primary Status: Suspected (5) DVT prophylaxis Priority: Primary Status: Acute (6) Parkinson disease Priority: Primary Status: Chronic (7) Hypertriglyceridemia Priority: Primary Status: Resolved Hospital course: Mr. Stern is a 53 year old male - Time Spent with Patient Total time spent providing and/or coordinating discharge services: - Discharge Medications Prescriptions: Continued Metoprolol XL (24 HR) Succ [Toprol Xl] 50 mg PO DAILY Melatonin 10 mg PO HS Escitalopram [Lexapro] 20 mg PO DAILY Albuterol Sulfate [Proair Hfa] 2 puff IH Q4H PRN PRN Reason: Shortness Of Breath Fenofibrate [Tricor] 54 mg PO DAILY #30 tablet Mirtazapine [Remeron] 15 mg PO HS Pantoprazole Sodium [Protonix] 40 mg PO DAILY PRN PRN Reason: gerd Rotigotine [Neupro] 1 each TD DAILY Tramadol HCl [Ultram] 50 mg PO Q8H PRN PRN Reason: Pain Home Medications: Albuterol Sulfate [Proair Hfa] 2 puff IH Q4H PRN 05/04/15 [History] Escitalopram [Lexapro] 20 mg PO DAILY 05/04/15 [History] Melatonin 10 mg PO HS 05/04/15 [History] Metoprolol XL (24 HR) Succ [Toprol Xl] 50 mg PO DAILY 05/04/15 [History] Fenofibrate [Tricor] 54 mg PO DAILY #30 tablet 05/07/15 [Rx] Mirtazapine [Remeron] 15 mg PO HS 11/12/17 [History] Pantoprazole Sodium [Protonix] 40 mg PO DAILY PRN 11/12/17 [History] Rotigotine [Neupro] 1 each TD DAILY 10/29/18 [History] Tramadol HCl [Ultram] 50 mg PO Q8H PRN 10/29/18 [History] Allergies/Adverse Reactions: Allergy/AdvReac Type Severity Reaction Status Date / Time acetaminophen [From Tylenol] Allergy Nausea Verified 11/12/17 09:50 haloperidol [From Haldol] AdvReac See Verified 10/30/17 09:57 Comments Date of admission: 10/29/18 17:34 Primary care physician: Eugenio Ruiz MD Consults: 10/29/18 14:16 Consult to Gastroenterology [CONS] Stat Consulting Provider: Gastroenterology [facility] Reason for Consult: CBD dilitation, elevated LFTS, cirrhosis, pancreatitis Time Notified: 14:16 Call Completed: Yes 10/30/18 12:04 Consult to Local [employer] [CONS] Routine Reason for SW Consult: etoh abuse 11/01/18 08:18 Consult to Nurse Navigator [CONS] Routine Comment: pna 11/02/18 12:01 Consult to Urology [CONS] Routine Consulting Provider: Urology Renu Reason for Consult: Bilateral nonobstructing renal calculi, tender flank areas with burning. Call Completed: No 11/03/18 10:43 Consult to Respiratory Therapy [CONS] Routine Reason for Consult: flutter valve Call Completed: No 11/04/18 08:00 Consult to Interventional Radiology [CONS] Routine Consulting Provider: Radiology Interventional Cols Reason for Consult: new onset asictes, diagnostic vs theraputic paracentesis Call Completed: No 11/07/18 08:15 Consult to Surgery [CONS] Routine Consulting Provider: Acute Care Surgery Reason for Consult: severe pancreatitis with necrosis Call Completed: Yes - Constitutional Vitals: Temp Pulse Resp BP Pulse Ox 98.6 F 73 16 108/70 90 11/07/18 11:13 11/07/18 11:13 11/07/18 11:13 11/07/18 11:13 11/07/18 11:13 Exam: General: Patient is alert, oriented 3. No distress Head: Atraumatic, normal inspection, normocephalic. Eye: EOMI, PERRLA, no scleral icterus noted. ENT: Mucous membranes moist. Neck: Normal inspection, Respiratory: Bibasilar crackles Cardiovascular: Regular rate and regular rhythm, S1 and S2 audible. No murmurs, rubs, or gallops. GI: Soft, epigastric tenderness with palpation. No rebound or rigidity Extremities:No joint swelling, pedal edema, or tenderness noted. Neurological: Alert, oriented 3, no focal deficits. Psychiatric: normal affect, normal mood. Skin: Dry, intact, warm. Normal color. No rashes. - Patient Status Disposition: Home, Self-Care Condition: Good - Discharge Instructions Follow Up With: Robert Gupta MD [Partnered Physician] - 11/18/18 7:00 am Eugenio Ruiz MD [Primary Care Provider] -
[2018-11-07 16:24] VITALS: BP 109/72
== END 2018-11-07 16:54 | disposition critical access hospital (66) | DRG 871 ==
LOC: SUATTDRO → EMEROOARM 11:42 → 3ANU 11:42 → SUATTDRO 15:19 → 3ANU 15:35
PROVIDERS: ADMIT Internal Medicine; ATTEND Internal Medicine

== ENCOUNTER 2021-08-02 19:40 | Inpatient (IN) ==
[2021-08-02] MEDS ORDERED: 0.9 % Sodium Chloride 1,000 ML IVC ONE (19:51)
[2021-08-02] MEDS ORDERED: *HR* FentaNYL (PF) 100 MCG/2 ML VIAL IVP STA (19:52)
[2021-08-02] MEDS ORDERED: *HR* LORazepam 2 MG/ML VIAL IVP ONE (20:38)
[2021-08-02 20:51] LABS: Basophils # 0.1 K/mcL (0.0-0.2); Basophils % 0.7 %; Eosinophils # 0.2 K/mcL (0.0-0.6); Eosinophils % 2.2 %; Hematocrit 35.9 % (37.5-50.1); Hemoglobin 12.3 g/dL (12.9-16.9); Immature Granulocytes % 1.2 % (0-4); Lymphocytes # 1.6 K/mcL (0.6-4.6); Mean Corpuscular HGB Conc 34.3 g/dL (31.6-35.5); Mean Corpuscular Hemoglobin 34.9 pg (28.0-33.3); Mean Platelet Volume 10.8 fL (9.4-12.4); Monocytes # 0.9 K/mcL (0.0-1.3); Monocytes % 8.2 %; Neutrophils # 7.7 K/mcL (1.6-8.9); Platelet Count 116 K/mcL (140-400); Red Blood Count 3.52 M/mcL (4.19-5.50); Red Cell Distribution Width 13.7 % (11.5-14.5); Segmented Neutrophils % 72.7 %; White Blood Count 10.5 K/mcL (4.3-11.1)
[2021-08-02 20:59] LABS: Prothrombin Time 10.7 Seconds (9.4-12.1)
[2021-08-02 21:02] LABS: Activated Partial Thrombo Time 26.1 Seconds (26.0-36.0)
[2021-08-02 21:10] LABS: Alanine Aminotransferase 59 Units/L (7-52); Albumin 3.5 g/dL (3.5-5.7); Albumin/Globulin Ratio 1.4 (1.1-2.2); Alkaline Phosphatase 111 Units/L (34-104); Aspartate Amino Transferase 40 Units/L (13-39); BUN/Creatinine Ratio 9 (6-26); Bilirubin,Total 0.6 mg/dL (0.3-1.0); Blood Urea Nitrogen 7 mg/dL (6-20); Calcium 8.4 mg/dL (8.6-10.3); Carbon Dioxide 20 mEq/L (23-29); Chloride 105 mEq/L (98-107); Creatine Kinase 131 Units/L (30-223); Globulin 2.5 g/dL (2.4-3.5); Glucose 95 mg/dL (70-105); Osmolality,Calculated 278 (280-300); Potassium 3.6 mEq/L (3.5-5.1); Sodium 135 mEq/L (136-145); Troponin I < 0.03 ng/mL (< 0.04); eGFR For African Americans > 60 (> 60); eGFR For Non-African Americans > 60 (> 60)
[2021-08-02] MEDS ORDERED: *HR* HYDROmorphone (PF) 1 MG/ML SYRINGE IVP STA (21:54)
[2021-08-02] MEDS ORDERED: Naloxone 0.4 MG/ML INJ IVP PRN (22:18)
[2021-08-02] MEDS ORDERED: Melatonin 3 MG TABLET PO PRN (22:18)
[2021-08-02] MEDS ORDERED: Ondansetron ODT 4 MG TAB.RAPDIS SL PRN (22:18)
[2021-08-03 01:16] LABS: Influenza A PCR Negative (Negative); Influenza B PCR Negative (Negative); Resp. Syncytial Virus PCR Negative (Negative)
[2021-08-03 01:17] LABS: SARS-CoV-2 by PCR (In House) Negative (Negative)
[2021-08-03 01:18] LABS: Bilirubin,Urine Negative (Negative); Blood,Urine Negative (Negative); Clarity,Urine Clear (Clear); Color,Urine Light-Yellow (Yellow); Glucose,Urine (UA) Normal (Normal); Ketones,Urine Negative (Negative); Leukocyte Esterase,Urine Negative (Negative); Nitrite,Urine Negative (Negative); PH,Urine 6.5 pH Units (5.0-8.0); Protein,Urine Trace mg/dL (Neg-Trace); Specific Gravity,Urine 1.007 (1.010-1.025); Urobilinogen,Urine Normal (Normal)
[2021-08-03] MEDS: *HR* OxyCODONE Immed Rel 5 MG TABLET PO PRN ×4 (01:28→22:41)
[2021-08-03] MEDS: Nicotine 21 MG PATCH.TD24 TD SCH ×2 (01:38→08:12)
[2021-08-03] MEDS: Fidaxomicin 200 MG TABLET PO SCH ×3 (01:49→20:36)
[2021-08-03 02:01] LABS: Basophils # 0.1 K/mcL (0.0-0.2); Basophils % 0.4 %; Eosinophils # 0.1 K/mcL (0.0-0.6); Eosinophils % 0.9 %; Hematocrit 36.5 % (37.5-50.1); Hemoglobin 12.6 g/dL (12.9-16.9); Immature Granulocytes % 0.8 % (0-4); Lymphocytes # 1.6 K/mcL (0.6-4.6); Mean Corpuscular HGB Conc 34.5 g/dL (31.6-35.5); Mean Corpuscular Hemoglobin 35.2 pg (28.0-33.3); Mean Platelet Volume 10.5 fL (9.4-12.4); Monocytes # 1.2 K/mcL (0.0-1.3); Monocytes % 7.8 %; Neutrophils # 12.7 K/mcL (1.6-8.9); Platelet Count 125 K/mcL (140-400); Red Blood Count 3.58 M/mcL (4.19-5.50); Red Cell Distribution Width 13.7 % (11.5-14.5); Segmented Neutrophils % 80.1 %
[2021-08-03 02:14] LABS: White Blood Count 15.8 K/mcL (4.3-11.1)
[2021-08-03 02:20] LABS: BUN/Creatinine Ratio 9 (6-26); Blood Urea Nitrogen 6 mg/dL (6-20); Calcium 8.4 mg/dL (8.6-10.3); Carbon Dioxide 21 mEq/L (23-29); Chloride 106 mEq/L (98-107); Glucose 94 mg/dL (70-105); Magnesium 1.6 mg/dL (1.6-2.6); Osmolality,Calculated 277 (280-300); Phosphorous 2.9 mg/dL (2.7-4.5); Potassium 3.7 mEq/L (3.5-5.1); Sodium 135 mEq/L (136-145); eGFR For African Americans > 60 (> 60); eGFR For Non-African Americans > 60 (> 60)
[2021-08-03] MEDS ORDERED: *HR* HYDROmorphone (PF) 1 MG/ML SYRINGE IVP ONE (06:10)
[2021-08-03] MEDS: *HR* HYDROmorphone (PF) 1 MG/ML SYRINGE IVP PRN ×3 (11:31→20:37)
[2021-08-03] MEDS: GuaiFENesin Liq 200 MG/10 ML UDC PO PRN (17:07)
[2021-08-03] MEDS: Gabapentin 400 MG CAPSULE PO SCH (22:41)
[2021-08-03] MEDS: tiZANidine 4 MG TABLET PO PRN (22:42)
[2021-08-03] MEDS: Isosorbide MONOnitrate (24 HR) 30 MG TAB.ER.24H PO SCH (22:44)
[2021-08-04] MEDS: GuaiFENesin Liq 200 MG/10 ML UDC PO PRN (05:18)
[2021-08-04] MEDS: *HR* HYDROmorphone (PF) 1 MG/ML SYRINGE IVP PRN ×2 (05:18→11:02)
[2021-08-04 06:30] LABS: Eosinophils % 2.8 %; Hemoglobin 12.3 g/dL (12.9-16.9); Mean Platelet Volume 10.5 fL (9.4-12.4)
[2021-08-04 06:32] LABS: Basophils # 0.1 K/mcL (0.0-0.2); Basophils % 0.5 %; Eosinophils # 0.3 K/mcL (0.0-0.6); Hematocrit 36.3 % (37.5-50.1); Immature Platelets 5.6 % (1.1-6.1); Lymphocytes # 1.2 K/mcL (0.6-4.6); Lymphocytes % 12.6 %; Mean Corpuscular HGB Conc 33.9 g/dL (31.6-35.5); Mean Corpuscular Hemoglobin 34.7 pg (28.0-33.3); Mean Corpuscular Volume 102.5 fL (83.0-100.0); Monocytes % 11.3 %; Neutrophils # 6.6 K/mcL (1.6-8.9); Platelet Count 128 K/mcL (140-400); Red Blood Count 3.54 M/mcL (4.19-5.50); Red Cell Distribution Width 13.2 % (11.5-14.5); Segmented Neutrophils % 71.8 %; White Blood Count 9.2 K/mcL (4.3-11.1)
[2021-08-04 06:36] LABS: BUN/Creatinine Ratio 9 (6-26); Blood Urea Nitrogen 8 mg/dL (6-20); Calcium 8.9 mg/dL (8.6-10.3); Carbon Dioxide 25 mEq/L (23-29); Chloride 103 mEq/L (98-107); Glucose 117 mg/dL (70-105); Osmolality,Calculated 279 (280-300); Potassium 3.8 mEq/L (3.5-5.1); Sodium 135 mEq/L (136-145); eGFR For African Americans > 60 (> 60); eGFR For Non-African Americans > 60 (> 60)
[2021-08-04 06:58] LABS: Platelet Estimate Slight Decrease (Normal)
[2021-08-04] MEDS: Gabapentin 400 MG CAPSULE PO SCH ×3 (09:28→22:25)
[2021-08-04] MEDS: Isosorbide MONOnitrate (24 HR) 30 MG TAB.ER.24H PO SCH (09:28)
[2021-08-04] MEDS: tiZANidine 4 MG TABLET PO PRN (09:28)
[2021-08-04] MEDS: Fidaxomicin 200 MG TABLET PO SCH ×2 (09:28→22:26)
[2021-08-04] MEDS: *HR* OxyCODONE Immed Rel 5 MG TABLET PO PRN ×3 (09:29→22:25)
[2021-08-04] MEDS: Nicotine 21 MG PATCH.TD24 TD SCH (09:29)
[2021-08-04] MEDS ORDERED: Ondansetron ODT 4 MG TAB.RAPDIS PO PRN (11:09)
[2021-08-04] MEDS ORDERED: *HR* LORazepam 0.5 MG TABLET PO PRN (11:09)
[2021-08-04] MEDS ORDERED: Metoprolol XL (24 HR) Succ 50 MG TAB.ER.24H PO SCH (11:15)
[2021-08-05] MEDS: *HR* HYDROmorphone (PF) 1 MG/ML SYRINGE IVP PRN (00:03)
[2021-08-05] MEDS: tiZANidine 4 MG TABLET PO PRN (09:40)
[2021-08-05] MEDS: Fidaxomicin 200 MG TABLET PO SCH (09:40)
[2021-08-05] MEDS: *HR* OxyCODONE Immed Rel 5 MG TABLET PO PRN (09:40)
[2021-08-05] MEDS: Nicotine 21 MG PATCH.TD24 TD SCH (09:40)
[2021-08-05] MEDS: Gabapentin 400 MG CAPSULE PO SCH (09:41)
[2021-08-05] MEDS: Isosorbide MONOnitrate (24 HR) 30 MG TAB.ER.24H PO SCH (09:41)
[2021-08-05 10:22] VITALS: BP 120/72; PULSE 76; TEMP 98.8; O2SAT 93
== END 2021-08-05 19:30 | disposition home health service (06) | DRG 560 ==
LOC: 3BNU 19:40 → EMEROOARM 19:40 → SUATTDRO 08-03 00:09 → 3BNU 08-03 01:15
PROVIDERS: ADMIT Internal Medicine; ATTEND Registered Nurse